=== PATIENT | female | born 1955 | race Caucasian/White ===

== ENCOUNTER 2018-07-18 05:38 | Emergency (ER) | payer MEDICARE, SELFPAY ==
[2018-07-18 05:39] VITALS: BP 148/128; PULSE 78; RESP 16; TEMP 36.8; O2SAT 98; BMI 25.3
--- NOTE | 2018-07-18 05:50 | CT_ITS ---
HISTORY: Left lower abdominal pain x today. Hx cervical cancer-surgery only, right salpingoophorectomy, appendectomy. EXAMINATION: CT Abdomen And Pelvis W/ Contrast TECHNIQUE: Helically acquired images were obtained of the abdomen and pelvis following IV contrast. A radiation dose optimization technique was used for this scan. IV Contrast dosage and agent: 100mL Isovue 370 Oral contrast: None. COMPARISON: None FINDINGS: Lower thorax: Clear. No pleural effusion or pericardial effusion. Food debris within the stomach. Normal liver, spleen, pancreas, gallbladder, and biliary system. Tiny accessory spleen bordering the lower pole of the spleen. Both kidneys are normal in position. Bilateral renal excretion of contrast without evidence of hydronephrosis, pyelonephritis, or suspicious renal lesion. Small parapelvic cyst at the upper pole of the left kidney. Adrenal glands are not enlarged. Abdominal aorta is normal in caliber. IVC is patent. No ascites or retroperitoneal lymph node enlargement. GI tract: Constipation pattern with large fecal residue. No obstruction. Previous appendectomy. No pericolonic inflammatory changes. Pelvis: Anteverted atrophic uterus. No free fluid or lymphadenopathy. Poor distention of the urinary bladder. Bones: S-shaped thoracolumbar scoliosis with lumbar convexity to left. Lumbar spine multilevel degenerative disc disease and spondylosis. No fracture or acute osseous abnormality. lMPRESSION: 1. Constipation pattern. No acute abdominal disease seen. 2. No lymphadenopathy or suspicious lesion. 3. Postsurgical and chronic changes, as above. Individualized dose optimization techniques were used for this CT. at 0735 Reported and signed by: Ramiro Mercado MD Electronically Signed: Ramiro Mercado, at 7:34 EDT Tel , Service support , CT/Abdomen/Pelvis W IV Cont ONLY
--- NOTE | 2018-07-18 05:52 | ED.VISSUMM ---
- ER Visit Summary Date of Service: 07/18/18 Chief Complaint: Left-sided abdominal pain History of Present Illness: The patient is a 63 F history of depression and anxiety. Prior ectopic and prior appendectomy. Patient states about 3 hours ago she started having sharp stabbing left-sided abdominal pain. Nothing particular makes the pain better or worse. Associated nausea no vomiting. Denies any dysuria. No stone history. No trauma. No dysuria. No prior history. She denies any fever, vomiting, constipation or diarrhea. Physical Examination: Older female no acute distress. Vital signs are stable and afebrile. She does not look septic or toxic. HEENT exam unremarkable. Neck nontender. Lungs clear to auscultation bilaterally. Heart regular rhythm no murmur. Abdomen is soft. Mildly tender left side of the abdomen. Normal bowel sounds. No peritoneal signs. No signs of obstruction, hernia or mass. Nondistended. Soft. No pulsatile mass. Patient moving all 4 extremities. Neurovascular intact. Back nontender. Neurologically she is awake and alert with no focal motor deficits. Test Results: CBC shows normal white count of 6 and hemoglobin of 12. BMP unremarkable with a gap of 6 and a creatinine of 1. Liver normal. Lipase was normal at 168. CT abdomen pelvis with IV contrast only awaiting the official radiology interpretation. Emergency Department Course and Treatment: 1 L normal saline. Morphine IV times 4 mg and Zofran IV. Patient is feeling much better after the pain medication. We are awaiting the formal CT read. Patient will be turned over to the morning incoming physician awaiting for the CAT scan results. If this is a left ureteral calculi she will be discharged home with [place] for pain. Urine strainer. Treatment Plan: [] Disposition: Discharge Impression: Acute left-sided abdominal pain This note was generated with [employer] dictation software. It may contain incorrect words, spelling, and punctuation that were not noted in review of the chart prior to signing ED Disposition - Plan for ED Patient: Disposition: Home or Assisted Living Instructions: ED Stone Renal W Colic Prescriptions: Hydrocodone/Acetaminophen [[place] 5-325 Tablet] 1 ea PO Q4H PRN PRN 3 Days #14 tab PRN Reason: Pain Referrals: Alfred Okeefe MD [Primary Care Provider] - 3-5 Days if not improving Additional Instructions: [place] for pain. Strain urine for possible passed kidney stone
--- NOTE | 2018-07-18 05:55 | ED.DCSUM_ITS ---
- ER Visit Summary Date of Service: 07/18/18 Chief Complaint: Left-sided abdominal pain History of Present Illness: The patient is a 63 F history of depression and anxiety. Prior ectopic and prior appendectomy. Patient states about 3 hours ago she started having sharp stabbing left-sided abdominal pain. Nothing particular makes the pain better or worse. Associated nausea no vomiting. Denies any dysuria. No stone history. No trauma. No dysuria. No prior history. She denies any fever, vomiting, constipation or diarrhea. Physical Examination: Older female no acute distress. Vital signs are stable and afebrile. She does not look septic or toxic. HEENT exam unremarkable. Neck nontender. Lungs clear to auscultation bilaterally. Heart regular rhythm no murmur. Abdomen is soft. Mildly tender left side of the abdomen. Normal bowel sounds. No peritoneal signs. No signs of obstruction, hernia or mass. Nondistended. Soft. No pulsatile mass. Patient moving all 4 extremities. Neurovascular intact. Back nontender. Neurologically she is awake and alert with no focal motor deficits. Test Results: CBC shows normal white count of 6 and hemoglobin of 12. BMP unremarkable with a gap of 6 and a creatinine of 1. Liver normal. Lipase was normal at 168. CT abdomen pelvis with IV contrast only awaiting the official radiology interpretation. Emergency Department Course and Treatment: 1 L normal saline. Morphine IV times 4 mg and Zofran IV. Patient is feeling much better after the pain medication. We are awaiting the formal CT read. Patient will be turned over to the morning incoming physician awaiting for the CAT scan results. If this is a left ureteral calculi she will be discharged home with [place] for pain. Urine strainer. Treatment Plan: [] Disposition: Discharge Impression: Acute left-sided abdominal pain This note was generated with [employer] dictation software. It may contain incorrect words, spelling, and punctuation that were not noted in review of the chart prior to signing ED Disposition - Plan for ED Patient: Disposition: Home or Assisted Living Instructions: ED Stone Renal W Colic Prescriptions: Hydrocodone/Acetaminophen [[place] 5-325 Tablet] 1 ea PO Q4H PRN PRN 3 Days #14 tab PRN Reason: Pain Referrals: Alfred Okeefe MD [Primary Care Provider] - 3-5 Days if not improving Additional Instructions: [place] for pain. Strain urine for possible passed kidney stone
[2018-07-18] MEDS: 0.9% Normal Saline 1,000 ML 1000 ML IV (05:57)
[2018-07-18 06:07] LABS: Bacteria 0 SEEN /hpf (None Seen); Mucous, Urine 0 SEEN /hpf (<or=2+)
[2018-07-18 06:10] LABS: Absolute Lymphocyte Count 2.79 X10^3/ul (0.83-4.51); Absolute Neutrophil Count 2.5 X10^3/uL (2.0-7.7); Basophil# 0.02 X10^3/uL; Basophil% 0.3 % (0-1); Eosinophil# 0.19 X10^3/uL; Eosinophils% 3.2 % (0-5); Hematocrit 38.7 % (37-47); Hemoglobin 12.6 g/dl (12.0-15.0); Lymphocyte # 2.79 X10^3/ul (4.0); Lymphocyte % 46.7 % (19-41); Mean Corp Hgb Conc 32.6 g/gl (32-36); Mean Corpuscular Hgb 28.8 pg (27.0-32.0); Mean Corpuscular Volume 88.6 fL (81-99); Mean Platelet Vol. 9.1 fl (6.2-12.0); Monocyte# 0.47 X10^3/uL; Monocyte% 7.9 % (0-10); Neutrophil # 2.49 X10^3/uL (2.7-7.7); Neutrophil % 41.7 % (47-70); Platelet Count 293 K/mm3 (150-450); RBC Distribution Width CV 14.5 % (11.6-14.6); RBC Distribution Width SD 47.2 fl (35.1-43.9); Red Blood Count 4.37 M/mm3 (4.2-5.4)
[2018-07-18 06:12] LABS: Color, Urine Yellow (Yellow); Glucose, Dipstick Normal (Normal); Ketone-Dipstick Negative (Negative); Leukocyte Esterase-Dipstick 25 /ul (Negative); Nitrite-Dipstick Negative (Negative); Occult Blood-Urine 10 /ul (Negative); Protein-Dipstick Negative (Negative); Specific Gravity, Urine 1.025 (1.002-1.030); Urine Bilirubin Dipstick Negative (Negative); Urine Clarity Clear (Clear); Urine Urobilinogen Normal (Normal)
[2018-07-18] MEDS: Morphine 4 MG/ML Syringe IV (06:13)
[2018-07-18] MEDS: Ondansetron 4 MG/2 ML Vial IV (06:13)
[2018-07-18 06:23] LABS: POSITIVE COUNT NO; POSITIVE DIFFERENTIAL NO; POSITIVE MORPHOLOGY NO
[2018-07-18 06:29] LABS: AST(SGOT) 16 U/L (15-37); Alanine Aminotransfer ALT/SGPT 22 U/L (13-56); Albumin, Serum 3.7 g/dL (3.2-5.0); Alkaline Phosphatase 55 U/L (45-117); Anion Gap 6 (5-15); BUN 24 mg/dL (7-18); BUN/Creat Ratio 22.6 RATIO (10-20); Bilirubin, Direct 0.06 mg/dL (0.00-0.30); Calcium,Total 8.6 mg/dL (8.5-10.1); Chloride 108 mmol/L (98-107); Creatinine, Serum 1.06 mg/dL (0.55-1.02); EST Glomerular Filtration Rate 56 mL/min (>60); Est Glom Filt Rate - Afr Amer 67 mL/min (>60); Estimated Creatinine Clearance 48.88 ml/min; Globulin 3.3 g/dL (2.2-4.2); Glucose 111 mg/dL (74-106); Lipase 168 U/L (73-393); Potassium 3.7 mmol/L (3.5-5.1); Sodium Level 139 mmol/L (136-145)
[2018-07-18 06:34] LABS: Red Blood Cells-Urine 0-5 SEEN /hpf (0-5); Squamous Epithelial Cells - UA 0-5 SEEN /hpf (5-10); White Blood Cells 0-5 SEEN /hpf (0-5)
--- NOTE | 2018-07-18 07:08 | ED.DEP ---
ED Disposition - Plan for ED Patient: Disposition: Home or Assisted Living Instructions: ED Stone Renal W Colic Prescriptions: Hydrocodone/Acetaminophen [[place] 5-325 Tablet] 1 ea PO Q4H PRN PRN 3 Days #14 tab PRN Reason: Pain Referrals: Alfred Okeefe MD [Primary Care Provider] - 3-5 Days if not improving Additional Instructions: [place] for pain. Strain urine for possible passed kidney stone
--- NOTE | 2018-07-18 07:12 | DCINST.ED_ITS ---
ED Disposition - Plan for ED Patient: Disposition: Home or Assisted Living Instructions: ED Stone Renal W Colic Prescriptions: Hydrocodone/Acetaminophen [[place] 5-325 Tablet] 1 ea PO Q4H PRN PRN 3 Days #14 tab PRN Reason: Pain Referrals: Alfred Okeefe MD [Primary Care Provider] - 3-5 Days if not improving Additional Instructions: [place] for pain. Strain urine for possible passed kidney stone
--- NOTE | 2018-07-18 08:00 | ED.DEP ---
ED Disposition - Plan for ED Patient: Disposition: Home or Assisted Living Instructions: ED Abdominal Pain Unkn Cause, ED Constipation Prescriptions: Hydrocodone/Acetaminophen [[place] 5-325 Tablet] 1 ea PO Q4H PRN PRN 3 Days #14 tab PRN Reason: Pain Referrals: Alfred Okeefe MD [Primary Care Provider] - 3-5 Days if not improving Additional Instructions: [place] for pain. Strain urine for possible passed kidney stone
--- NOTE | 2018-07-18 08:11 | ED.DEP ---
ED Disposition - Plan for ED Patient: Disposition: Home or Assisted Living Instructions: ED Abdominal Pain Unkn Cause, ED Constipation Prescriptions: Hydrocodone/Acetaminophen [[place] 5-325 Tablet] 1 ea PO Q4H PRN PRN 3 Days #14 tab PRN Reason: Pain Referrals: Alfred Okeefe MD [Primary Care Provider] - 3-5 Days if not improving
--- NOTE | 2018-07-18 08:19 | ED.RN ---
PT DID NOT RECEIVE [place] SCRIPT D/T HER HAVING CONSTIPATION, PER DR ARCHIBALD
[2018-07-18 08:20] VITALS: BP 110/68; PULSE 67; RESP 18; O2SAT 99
== END 2018-07-18 08:20 | disposition home or self-care (01) ==
PROVIDERS: Emergency Provider Emergency Medicine; Family Provider Family Medicine; PCP Family Medicine
DX: R10.9 Unspecified abdominal pain (principal); F32.9 Major depressive disorder, single episode, unspecified; F41.9 Anxiety disorder, unspecified; R11.0 Nausea; Z79.899 Other long term (current) drug therapy
CPT/HCPCS: 74177; 80048; 80076; 81001; 83690; 85025; 96361; 96374; 96375; 99285; J7030; Q9967; A4216; J2405

== ENCOUNTER 2020-12-17 11:54 | Emergency (ER) | payer MEDICARE, MEDICAID, SELFPAY ==
[2020-12-17 11:55] VITALS: BP 112/62; PULSE 87; RESP 20; TEMP 37.1; O2SAT 93; BMI 29.7
--- NOTE | 2020-12-17 13:12 | CT_ITS ---
EXAM: CT HEAD WITHOUT INTRAVENOUS CONTRAST CLINICAL INDICATION: Head injury. TECHNIQUE: Multiple axial images were obtained of the head without intravenous contrast. This CT exam was performed using one or more of the following dose reduction techniques: automated exposure control, adjustment of the mA and/or kV according to patient size, and/or use of iterative reconstruction technique. This report was created using [employer] report generation technology. COMPARISON: CT head without contrast 05/04/2017. FINDINGS: BRAIN AND EXTRA-AXIAL SPACES: Unremarkable. No intra- or extra-axial hemorrhage. No evidence of acute infarct. No intracranial mass or mass effect. There is preservation of the jackman/white matter interface. Posterior fossa structures are unremarkable. Ventricles are appropriate for age. No hydrocephalus. Basal cisterns are patent. BONES/JOINTS: Unremarkable. No discrete lytic or blastic abnormalities. SINUSES: Unremarkable as visualized. Clear. MASTOID AIR CELLS: Unremarkable. Clear. ORBITS: Visualized globes, extraocular muscles, optic nerves and retrobulbar fat appear unremarkable. CT/Brain/Head without Contrast IMPRESSION: Negative head/brain CT without intravenous contrast and without significant change when compared to 05/04/2017. Electronically Signed: Rich Hoffman MD at 14:38 EDT , Service support ,
[2020-12-17 14:00] VITALS: BP 94/60; PULSE 78; RESP 19; O2SAT 95
--- NOTE | 2020-12-17 15:02 | EX.ED.DYSGE1 ---
HPI History of Present Illness Chief Complaint: Fall Informant: patient Narrative Narrative: 65-year-old female presents with head injury. Patient states that she had a head injury several years ago and intermittently has ataxia resulting from it. She states that today she was off balance and falling striking her head on the TV stand. She is not sure if she lost consciousness but does not believe so. She states she tried to get up but could not she tried to crawl but could not and just felt very uncoordinated. She notes a hematoma to her occiput. She is not on any blood thinners. [facility] Medical History Anxiety Asthma COPD (chronic obstructive pulmonary disease) Depression GERD (gastroesophageal reflux disease) Schizophrenia Home Medications acetaminophen-codeine 1 tab PO Q4H PRN PRN 05/04/17 [History Last Taken Unknown] albuterol sulfate 2.5 mg INHALATION TID PRN PRN 05/04/17 [History Last Taken Unknown] albuterol sulfate [Proair Hfa (SP)Vent Pts] 2 puff INHALATION Q6H PRN PRN 05/04/17 [History Last Taken Unknown] amitriptyline 10 mg PO QHS 05/04/17 [History Last Taken Unknown] clonazepam [Klonopin] 2 mg PO QHS 05/04/17 [History Last Taken Unknown] fluoxetine 40 mg PO DAILY 05/04/17 [History Last Taken Unknown] lamotrigine [Lamictal] 200 mg PO BID 05/04/17 [History Last Taken Unknown] omeprazole 40 mg PO DAILY 05/04/17 [History Last Taken Unknown] topiramate 50 mg DAILY 05/04/17 [History Last Taken Unknown] diclofenac sodium 75 mg PO BIDCM 07/18/18 [History Last Taken Unknown] Allergy/AdvReac Type Severity Reaction Status Date / Time aspirin Allergy Nausea Verified 12/17/20 11:58 Surgical History History of appendectomy Social History (Updated 12/17/20 @ 15:[address] Heriberto España DO) Smoking Status: Current every day smoker tobacco type: e-cigarettes substance use type: does not use ROS ROS ED Constitutional Constitutional ED: Denies chills or weight loss Eyes Eyes: Denies change in vision or diplopia ENT ENT ED: Denies ear pain, rhinorrhea or sore throat Cardiovascular Cardiovascular: Denies chest pain, orthopnea, palpitations or racing heartbeat Respiratory/Chest Respiratory/Chest: Denies cough, dyspnea or orthopnea Gastrointestinal Gastrointestinal: Denies abdominal pain, diarrhea, nausea or vomiting Genitourinary Genitourinary ED: Denies dysuria, hematuria or urinary frequency Musculoskeletal Musculoskeletal: Denies arthralgias or myalgias Integumentary Denies abscess or rash Neurologic Neurologic: Reports headache(s) and other Details: Ataxia ; Denies weakness Psychiatric Psychiatric: Denies anxiety, depression, suicidal ideation or suicidal thoughts Endocrine Endocrinology: Denies polydipsia, polyphagia or polyuria Allergic/Immunologic Allergic/Immunologic ED: Denies mouth swelling, tongue swelling or urticaria EXAM Physical Exam Const Vital Signs: 12/17/20 11:55 12/17/20 12:01 12/17/20 14:00 Temperature 98.8 F Temperature Source Oral Pulse Rate 87 78 Respiratory Rate 20 H 19 H Respiratory Effort Normal Non-Labored Blood Pressure 112/62 94/60 Blood Pressure Mean 78 71 Pulse Ox 93 95 Oxygen Delivery Method Room Air Room Air Positive well nourished and well developed General Appearance ED: well developed HEENT Reports normocephalic, head/scalp atraumatic and moist mucous membranes HEENT Narrative: There is a less than 1 cm hematoma to the occiput of the scalp trauma Eyes PERRL and EOMs intact bilaterally Neck no lymphadenopathy, supple and no JVD Resp normal respiratory effort and clear to auscultation bilaterally Cardio regular rate, regular rhythm and no murmurs GI normal to inspection, nondistended, normoactive bowel sounds and non-tender Palpation: soft Back/Spine no CVA tenderness and normal ROM Extremity normal to inspection General Extremety ED: Negative for edema General Extremity: Negative for edema Neuro oriented x3, CN's II-XII intact bilaterally and no sensory deficits noted Neuro Narrative: Normal tbumbf-ar-kpyh cvwb-[id number]-[id number] test. Sensorium / Orientation: alert Motor Exam: strength 5/5 throughout Psych mental status grossly normal Mood & Affect: Negative for depressed or tearful Skin no rashes or lesions noted and no wounds MDM MDM MDM Narrative Medical decision making narrative: CT of the brain was negative. Patient most likely has a mild concussion. Would recommend follow-up with primary care in 1 week Radiography Diagnostic Testing: Radiology Impression Brain CT 12/17/20 13:12 IMPRESSION: Negative head/brain CT without intravenous contrast and without significant change when compared to 05/04/2017. Electronically Signed: Rich Hoffman MD at 14:38 EDT , Service support , Discharge Plan Triage Chief Complaint: Fall ED Provider: Heriberto España Dx/Rx/DC Orders Clinical Impression: Concussion Instructions: ED Concussion Prescriptions: No Action lamotrigine [Lamictal] 200 MG tablet 200 mg PO BID RF: 0 albuterol sulfate 2.5 MG/3 ML solution for nebulization 2.5 mg inhalation TID PRN PRN (Reason: Sob &/Or Wheezing) RF: 0 topiramate 25 MG tablet 50 mg DAILY RF: 0 acetaminophen-codeine 1 TABLET tablet 1 tab PO Q4H PRN PRN (Reason: Pain) RF: 0 omeprazole 40 MG capsule,delayed release(DR/EC) 40 mg PO DAILY RF: 0 amitriptyline 10 MG tablet 10 mg PO QHS RF: 0 clonazepam [Klonopin] 2 MG tablet 2 mg PO QHS RF: 0 albuterol sulfate [ProAir HFA] 1 PUFF inhaler 2 puff inhalation Q6H PRN PRN (Reason: Sob &/Or Wheezing) RF: 0 fluoxetine 20 MG capsule 40 mg PO DAILY RF: 0 diclofenac sodium 75 MG tablet 75 mg PO BIDCM RF: 0 Primary Care Provider: Alfred Okeefe Referrals: Alfred Okeefe MD [Primary Care Provider] - 1 Week Disposition Disposition: Home, Self Care
== END 2020-12-17 15:29 | disposition home or self-care (01) ==
PROVIDERS: Emergency Provider Emergency Medicine; PCP Family Medicine
DX: S06.0X0A Concussion without loss of consciousness, initial encounter (principal); S00.03XA Contusion of scalp, initial encounter; W01.190A Fall on same level from slipping, tripping and stumbling with subsequent striking against furniture, initial encounter; Y93.9 Activity, unspecified; Y92.9 Unspecified place or not applicable; R27.0 Ataxia, unspecified; F20.9 Schizophrenia, unspecified; F32.9 Major depressive disorder, single episode, unspecified; F41.9 Anxiety disorder, unspecified; J44.9 Chronic obstructive pulmonary disease, unspecified; K21.9 Gastro-esophageal reflux disease without esophagitis; Z79.899 Other long term (current) drug therapy
CPT/HCPCS: 70450; 99284

== ENCOUNTER 2021-04-22 16:18 | Emergency (ER) | payer MEDICARE, MEDICAID, SELFPAY ==
[2021-04-22 16:19] VITALS: BP 114/85; PULSE 92; RESP 18; TEMP 36.6; O2SAT 94; BMI 26.8
--- NOTE | 2021-04-22 16:34 | ED.VIS.FALL ---
HPI HPI - Fall History of Present Illness Chief Complaint: Fall Narrative Narrative: 65-year-old female past medical history of frequent falls presents with 2 weeks of chest pain after she had fallen. She states she has pain on her left lateral ribs. She states she has been falling quite frequently for the past few months. She called EMS today because she has not been taking any analgesics and felt that it was time to come in to see about her left-sided rib pain. It is worse with palpation and movement, and relieved by nothing. She denies any fevers or chills. No cough. No diaphoresis. She was nauseated and vomited once. She denies any blood in her emesis. [facility] Medical History Anxiety Asthma COPD (chronic obstructive pulmonary disease) Depression GERD (gastroesophageal reflux disease) Schizophrenia Home Medications acetaminophen-codeine 1 tab PO Q4H PRN PRN 05/04/17 [History Last Taken Unknown] albuterol sulfate 2.5 mg INHALATION TID PRN PRN 05/04/17 [History Last Taken Unknown] albuterol sulfate [Proair Hfa (SP)Vent Pts] 2 puff INHALATION Q6H PRN PRN 05/04/17 [History Last Taken Unknown] amitriptyline 10 mg PO QHS 05/04/17 [History Last Taken Unknown] clonazepam [Klonopin] 2 mg PO QHS 05/04/17 [History Last Taken Unknown] fluoxetine 40 mg PO DAILY 05/04/17 [History Last Taken Unknown] lamotrigine [Lamictal] 200 mg PO BID 05/04/17 [History Last Taken Unknown] omeprazole 40 mg PO DAILY 05/04/17 [History Last Taken Unknown] topiramate 50 mg DAILY 05/04/17 [History Last Taken Unknown] diclofenac sodium 75 mg PO BIDCM 07/18/18 [History Last Taken Unknown] tramadol [Ultram] 50 mg PO Q6H PRN #12 tab 04/22/21 [Rx Last Taken Unknown] Allergy/AdvReac Type Severity Reaction Status Date / Time aspirin Allergy Nausea Verified 12/17/20 11:58 Surgical History History of appendectomy Social History Smoking Status: Current every day smoker tobacco type: e-cigarettes substance use type: does not use ROS ROS ED ROS Narrative Constitutional: No fever, no chills. HEENT: No sore throat. No neck pain. No loss of vision. No rhinorrhea. Cardiovascular: Left rib/chest pain. No palpitations. No pedal edema. Respiratory: No cough, no shortness of breath. Abdominal: No abdominal pain. No nausea. No vomiting. Genitourinary: No dysuria. No hematuria. Musculoskeletal: No myalgias. No arthralgias. Neurologic: No headaches. No dizziness. No lightheadedness. Skin: No rash. No change in color. Psychiatric: No depression. No anxiety. EXAM Physical Exam Narrative Exam Narrative: Afebrile. Vital signs noted. HEENT: Normocephalic. Atraumatic. PERRL, EOMI. Neck soft and supple. No point tenderness or step off. Cardiovascular: Regular rate and rhythm. No murmurs, rubs, or gallops appreciated. Respiratory: No tachypnea. Lungs clear to auscultation bilaterally. Positive tenderness to palpation left chest wall and anterior to lateral ribs. No crepitance. Gastrointestinal: Abdomen soft, nontender, with normoactive bowel sounds. No rebound or guarding. Neurological: Awake. Alert. Nonfocal, nonlateralizing. Skin: No rash. Normal color. No pallor. Musculoskeletal: No pedal edema. Full range of motion extremities. Const Vital Signs: 04/22/21 16:19 04/22/21 17:33 04/22/21 19:01 Temperature 97.9 F Temperature Source Temporal Pulse Rate 92 Respiratory Rate 18 16 Respiratory Effort Normal Non-Labored Respiratory Depth Normal Respiratory Pattern Normal Blood Pressure 114/85 H Blood Pressure Mean 94 Pulse Ox 94 Oxygen Delivery Method Room Air Room Air Room Air MDM MDM MDM Narrative Medical decision making narrative: Patient was administered Tylenol which she has taken in the past. I will obtain x-rays of her left ribs. Her fall was very remote. Her x-ray does show acute minimally displaced left seventh rib fracture. No pneumothorax. She will be given a prescription for tramadol to take but advised to take her Tylenol if that has been controlling her pain for the last 2 weeks. She can take this for breakthrough pain. Additionally, she will apply ice to the affected area. She was given an incentive spirometer. She has a normal pulse ox currently. At this point in time, I feel she can be discharged safely home with follow-up to her primary care provider. It was explained to her that we do not wrap her chest or give her rib belt. Disposition is discharged home in stable condition. Radiography Diagnostic Testing: Clinical Impression(s) from Imaging Studies Ribs w/Chest X-Ray 04/22/21 17:20 IMPRESSION: RIBS: Acute minimally displaced left 7th rib fracture. CHEST: Normal x-ray examination of the chest. Electronically Signed: Sebastian Feliz MD at 18:35 EST , Service support , Discharge Plan Triage Chief Complaint: Fall ED Provider: Rich Hinton Dx/Rx/DC Orders Clinical Impression: Left rib fracture, Fall Instructions: ED Rib Fracture Prescriptions: New tramadol [Ultram] 50 mg tablet 50 mg PO Q6H PRN (Reason: pain) Qty: 12 RF: 0 No Action lamotrigine [Lamictal] 200 MG tablet 200 mg PO BID RF: 0 albuterol sulfate 2.5 MG/3 ML solution for nebulization 2.5 mg inhalation TID PRN PRN (Reason: Sob &/Or Wheezing) RF: 0 topiramate 25 MG tablet 50 mg DAILY RF: 0 acetaminophen-codeine 1 TABLET tablet 1 tab PO Q4H PRN PRN (Reason: Pain) RF: 0 omeprazole 40 MG capsule,delayed release(DR/EC) 40 mg PO DAILY RF: 0 amitriptyline 10 MG tablet 10 mg PO QHS RF: 0 clonazepam [Klonopin] 2 MG tablet 2 mg PO QHS RF: 0 albuterol sulfate [ProAir HFA] 1 PUFF inhaler 2 puff inhalation Q6H PRN PRN (Reason: Sob &/Or Wheezing) RF: 0 fluoxetine 20 MG capsule 40 mg PO DAILY RF: 0 diclofenac sodium 75 MG tablet 75 mg PO BIDCM RF: 0 Primary Care Provider: Alfred Okeefe Referrals: Alfred Okeefe MD [Primary Care Provider] - 04/29/21 Disposition Disposition: Home, Self Care
--- NOTE | 2021-04-22 17:20 | RAD_ITS ---
STUDY: X-RAY - UNILATERAL RIBS ( LEFT ) WITH CHEST REASON FOR EXAM: Female, 65 years old. pain TECHNIQUE - RIBS: 4 view(s) of the ribs. TECHNIQUE - CHEST: Single PA view of the chest. COMPARISON: None. FINDINGS - RIBS: An acute minimally displaced oblique fractures present at the lateral aspect of the left seventh rib. Normal remaining visualized ribs without a demonstrated fracture. FINDINGS - CHEST: The lungs are clear and expanded. There is no demonstrated pleural abnormality. Normal size heart. Normal mediastinum and devorah. Normal visualized pulmonary arteries. Normal visualized aortic arch and descending thoracic aorta. Normal visualized thoracic spine. There is degenerative osteoarthritis of the bilateral shoulders. An acute minimally displaced oblique fractures present at the lateral aspect of the left seventh rib. There is no demonstrated abnormality of the visualized soft tissue structures of the upper abdomen. RAD/Ribs Uni Min 3V w/PA Chest IMPRESSION: RIBS: Acute minimally displaced left 7th rib fracture. CHEST: Normal x-ray examination of the chest. Electronically Signed: Sebastian Feliz MD at 18:35 EST , Service support ,
[2021-04-22] MEDS: Acetaminophen 325 MG Tablet 650 MG PO (17:29)
[2021-04-22 19:01] VITALS: RESP 16
--- NOTE | 2021-04-22 19:33 | ED.RN ---
Patient discharged and given a change of underwear with pad. We do not have any of her things but lady called and they left it on her couch, at home. She states she cannot call anyone to get her and does not have the ability to pay for cab. Told her I will call her emergency contact but she does not have her number to call her.
== END 2021-04-22 19:27 | disposition home or self-care (01) ==
PROVIDERS: Emergency Provider Emergency Medicine; PCP Family Medicine; Visit Provider Emergency Medicine
DX: S22.32XA Fracture of one rib, left side, initial encounter for closed fracture (principal); F20.9 Schizophrenia, unspecified; J44.9 Chronic obstructive pulmonary disease, unspecified; R11.2 Nausea with vomiting, unspecified; W19.XXXA Unspecified fall, initial encounter; F17.290 Nicotine dependence, other tobacco product, uncomplicated; K21.9 Gastro-esophageal reflux disease without esophagitis; F41.9 Anxiety disorder, unspecified; F32.A Depression, unspecified; Z79.899 Other long term (current) drug therapy
CPT/HCPCS: 71101

== ENCOUNTER 2021-04-22 20:46 | Observation (INO) | payer MEDICARE, MEDICAID, SELFPAY ==
[2021-04-22 20:47] VITALS: BP 129/73; PULSE 96; RESP 16; TEMP 36.6; O2SAT 97; BMI 28.7
[2021-04-22 20:51] VITALS: O2SAT 97
--- NOTE | 2021-04-22 20:55 | ED.RN ---
Patient given call light and told to not get up on her own and to use the button. Door open with patient near nurse station. Patient agreeable and confirmed knowledge of the location of her button on the side rail.
[2021-04-22 21:38] VITALS: BP 110/75
--- NOTE | 2021-04-22 21:38 | EKG12_ITS ---
Test Reason : FALL Blood Pressure : / mmHG Vent. Rate : 086 BPM Atrial Rate : 086 BPM P-R Int : 152 ms QRS Dur : 082 ms QT Int : 382 ms P-R-T Axes : 072 063 064 degrees QTc Int : 457 ms Normal sinus rhythm Somatic/Motion artifact Nonspecific T wave abnormality Confirmed by BITA DAI, FRANSISCA ([id number]), slot editor ROBERTO HARRIS ([id number]) on 04/23/2021 2:18:11 PM Referred By: MARLYN Confirmed By:FRANSISCA SUNSHINE MD
--- NOTE | 2021-04-22 21:38 | CT_ITS ---
STUDY: CT BRAIN WITHOUT CONTRAST REASON FOR EXAM: Female, 65 years old. FELL AND HIT HEAD,HAS ABRASIONS TO NOSE AND FOREHEAD RADIATION DOSAGE (If Supplied By Facility): CTDIvol = ( 44.99 ) mGy, DLP = ( 779.24 ) mGycm TECHNIQUE: Transaxial CT imaging of the brain was performed without administration of intravenous contrast material. Individualized dose optimization techniques were used for this CT. COMPARISON: Head CT dated December 17, 2020 FINDINGS: Mild soft tissue swelling is present over the right and anterior side of the frontal bone. No visualized skull fractures. Normal calvarium. There is mild cerebral atrophy with widening of the extra-axial spaces and ventricular dilatation. Normal white matter tracts of the cerebral hemispheres. Normal basal ganglia and thalami. Normal brainstem. Normal cerebellum. There is no intracranial hemorrhage. There are no findings of an acute ischemic infarction. Normal visualized paranasal sinuses. CT/Brain/Head without Contrast IMPRESSION: 1. Mild soft tissue swelling is present over the right and anterior side of the frontal bone. No visualized skull fractures. 2. Chronic involutional changes of the brain. Electronically Signed: Sebastian Feliz MD at 22:57 EST , Service support ,
[2021-04-22 22:29] VITALS: BP 115/75; BP 116/77; BP 123/75; PULSE 89; PULSE 91; PULSE 94
[2021-04-22 22:34] LABS: Absolute Lymphocyte Count 0.62 X10^3/uL (0.83-4.51); Absolute Neutrophil Count 9.7 X10^3/uL (2.0-7.7); Basophil# 0.04 X10^3/uL; Basophil% 0.4 % (0-1); Eosinophil# 0.09 X10^3/uL; Eosinophils% 0.8 % (0-5); Hematocrit 32.9 % (37-47); Hemoglobin 10.4 g/dL (12.0-15.0); Lymphocyte # 0.62 X10^3/ul (0.83-4.51); Lymphocyte % 5.5 % (19-41); Mean Corp Hgb Conc 31.6 g/dL (32-36); Mean Corpuscular Hgb 29.2 pg (27.0-32.0); Mean Corpuscular Volume 92.4 fL (81-99); Mean Platelet Vol. 8.9 fl (6.2-12.0); Monocyte# 0.66 X10^3/uL; Monocyte% 5.9 % (0-10); NRBC Flagged by Analyzer 0 % (0-5); Neutrophil # 9.74 X10^3/uL (2.7-7.7); Neutrophil % 86.3 % (47-70); Platelet Count 266 K/mm3 (150-450); RBC Distribution Width CV 14.2 % (11.6-14.6); RBC Distribution Width SD 48.8 fl (35.1-43.9); Red Blood Count 3.56 M/mm3 (4.2-5.4); White Blood Count 11.3 K/mm3 (4.4-11.0)
[2021-04-22 22:51] LABS: ALB/GLOB Ratio 0.9 RATIO (0.9-2.4); AST(SGOT) 28 U/L (15-37); Alanine Aminotransfer ALT/SGPT 27 U/L (13-56); Alkaline Phosphatase 81 U/L (45-117); Anion Gap 10 (5-15); BUN 20 mg/dL (7-18); BUN/Creat Ratio 23.8 RATIO (10-20); Calcium,Total 8.9 mg/dL (8.5-10.1); Chloride 105 mmol/L (98-107); Creatinine, Serum 0.84 mg/dL (0.55-1.02); EST Glomerular Filtration Rate 72 mL/min (>60); Est Glom Filt Rate - Afr Amer 87 mL/min (>60); Estimated Creatinine Clearance 50.38 ml/min; Globulin 3.3 g/dL (2.2-4.2); Glucose 106 mg/dL (74-106); Potassium 4.4 mmol/L (3.5-5.1); Protein, Total 6.3 g/dL (6.4-8.2); Sodium Level 138 mmol/L (136-145)
--- NOTE | 2021-04-22 23:00 | EDS_ITS ---
HPI HPI - Fall History of Present Illness Chief Complaint: Fall Narrative Narrative: Patient re-presents to the emergency department after being seen by myself and diagnosed with a left seventh rib fracture from a fall 2 weeks ago. It was reported that the patient was trying to get into the taxi and fell 3 times. There was no loss of consciousness but she sustained abrasions to her face. Patient did relay history given that she has been falling frequently over the last few months. She denies any fever or chills, no other symptoms. She denies any new injury. PFSH PFS Medical History Anxiety Asthma COPD (chronic obstructive pulmonary disease) Depression GERD (gastroesophageal reflux disease) Schizophrenia Home Medications acetaminophen-codeine 1 tab PO Q4H PRN PRN 05/04/17 [History Last Taken Unknown] albuterol sulfate 2.5 mg INHALATION TID PRN PRN 05/04/17 [History Last Taken Unknown] albuterol sulfate [Proair Hfa (SP)Vent Pts] 2 puff INHALATION Q6H PRN PRN 05/04/17 [History Last Taken Unknown] amitriptyline 10 mg PO QHS 05/04/17 [History Last Taken Unknown] clonazepam [Klonopin] 2 mg PO QHS 05/04/17 [History Last Taken Unknown] fluoxetine 40 mg PO DAILY 05/04/17 [History Last Taken Unknown] lamotrigine [Lamictal] 200 mg PO BID 05/04/17 [History Last Taken Unknown] omeprazole 40 mg PO DAILY 05/04/17 [History Last Taken Unknown] topiramate 50 mg DAILY 05/04/17 [History Last Taken Unknown] diclofenac sodium 75 mg PO BIDCM 07/18/18 [History Last Taken Unknown] tramadol [Ultram] 50 mg PO Q6H PRN #12 tab 04/22/21 [Rx Last Taken Unknown] Allergy/AdvReac Type Severity Reaction Status Date / Time aspirin Allergy Nausea Verified 12/17/20 11:58 Surgical History History of appendectomy Social History Smoking Status: Current every day smoker tobacco type: e-cigarettes substance use type: does not use ROS ROS ED ROS Narrative Constitutional: No fever, no chills. HEENT: No sore throat. No neck pain. No loss of vision. No rhinorrhea. Cardiovascular: Left sided chest pain from broken rib diagnosed earlier today. No palpitations. No pedal edema. Respiratory: No cough, no shortness of breath. Abdominal: No abdominal pain. No nausea. No vomiting. Genitourinary: No dysuria. No hematuria. Musculoskeletal: No myalgias. No arthralgias. Neurologic: No headaches. No dizziness. No lightheadedness. Frequent falls. Skin: No rash. No change in color. Psychiatric: No depression. No anxiety. EXAM Physical Exam Narrative Exam Narrative: Afebrile. Vital signs noted. HEENT: Normocephalic. Small linear abrasions in between eyebrows and on forehead, no active bleeding. PERRL, EOMI. Neck soft and supple. No point tenderness or step off. Cardiovascular: Regular rate and rhythm. No murmurs, rubs, or gallops appreciated. Mild tenderness to palpation left rib cage. Respiratory: No tachypnea. Lungs clear to auscultation bilaterally. Gastrointestinal: Abdomen soft, nontender, with normoactive bowel sounds. No rebound or guarding. Neurological: Awake. Alert. Nonfocal, nonlateralizing. Skin: No rash. Normal color. No pallor. Musculoskeletal: No pedal edema. Full range of motion extremities. Const Vital Signs: 04/22/21 20:47 04/22/21 20:51 04/22/21 21:38 Temperature 97.8 F Temperature Source Temporal Pulse Rate 96 Pulse Rate [Lying] Pulse Rate [Sitting] Pulse Rate [Standing] Respiratory Rate 16 Respiratory Effort Normal Respiratory Depth Normal Respiratory Pattern Normal Blood Pressure 129/73 H 110/75 Blood Pressure [Lying] Blood Pressure [Sitting] Blood Pressure [Standing] Blood Pressure Mean 91 86 Blood Pressure Mean [Lying] Blood Pressure Mean [Sitting] Blood Pressure Mean [Standing] Pulse Ox 97 97 Oxygen Delivery Method Room Air Room Air 04/22/21 22:29 04/22/21 23:22 Temperature Temperature Source Pulse Rate 17 L Pulse Rate [Lying] 94 Pulse Rate [Sitting] 89 Pulse Rate [Standing] 91 Respiratory Rate Respiratory Effort Respiratory Depth Respiratory Pattern Blood Pressure Blood Pressure [Lying] 116/77 Blood Pressure [Sitting] 123/75 H Blood Pressure [Standing] 115/75 Blood Pressure Mean Blood Pressure Mean [Lying] 90 Blood Pressure Mean [Sitting] 91 Blood Pressure Mean [Standing] 88 Pulse Ox Oxygen Delivery Method MDM MDM MDM Narrative Medical decision making narrative: As the patient fell frequently outside, she states she lives alone, I am concerned about her falling and injuring herself more. I obtained an EKG which demonstrates normal sinus rhythm at 86 bpm without ectopy or acute ST changes. There is baseline artifact in leads V4 and V5. CBC shows slightly elevated white count of 11.3, hemoglobin 10.4. Normal platelet count of 266. Electrolyte panel is grossly unremarkable except for BUN of 20 with a normal creatinine of 0.8. LFTs are grossly unremarkable. CT of the brain shows mild soft tissue swelling over the right and anterior side of the frontal bone, no visualized skull fracture. There is chronic involutional changes of the brain. I will discuss the patient with the hospitalist, Dr. Peace for observation and PT OT evaluation regarding her inability to ambulate and frequent falls. Disposition is assigned to observation. Urinalysis currently pending. Lab Data Labs: Laboratory Results - last 24 hr 04/22/21 04/22/21 22:20 22:20 WBC 11.3 H RBC 3.56 L Hgb 10.4 L Hct 32.9 L MCV 92.4 MCH 29.2 MCHC 31.6 L RDW Std Deviation 48.8 H RDW Coeff of Portillo 14.2 Plt Count 266 MPV 8.9 Immature Gran % (Auto) 1.100 H Neut % (Auto) 86.3 H Lymph % (Auto) 5.5 L [place] % (Auto) 5.9 Eos % (Auto) 0.8 Baso % (Auto) 0.4 Absolute Neuts (auto) 9.7 H Absolute Lymphs (auto) 0.62 L Nucleated RBC % 0 Sodium 138 Potassium 4.4 Chloride 105 Carbon Dioxide 23.0 Anion Gap 10 BUN 20 H Creatinine 0.84 Estim Creat Clear Calc 50.38 Est GFR (MDRD) Af Amer 87 Est GFR (MDRD) Non-Af 72 BUN/Creatinine Ratio 23.8 H Glucose 106 Calcium 8.9 Total Bilirubin 0.40 AST 28 ALT 27 Alkaline Phosphatase 81 Total Protein 6.3 L Albumin 3.0 L Globulin 3.3 Albumin/Globulin Ratio 0.9 Radiography Diagnostic Testing: Clinical Impression(s) from Imaging Studies Brain CT 04/22/21 21:38 IMPRESSION: 1. Mild soft tissue swelling is present over the right and anterior side of the frontal bone. No visualized skull fractures. 2. Chronic involutional changes of the brain. Electronically Signed: Sebastian Feliz MD at 22:57 EST , Service support , Discharge Plan Dx/Rx/DC Orders Clinical Impression: Frequent falls, Closed head injury, Facial abrasion, Unsteady gait Disposition Disposition: Acute Care Hospital [facility]
[2021-04-22 23:22] VITALS: PULSE 17
[2021-04-22 23:32] LABS: Bacteria 0 SEEN /hpf (None Seen); Mucous, Urine 0 SEEN /hpf (<or=2+); Squamous Epithelial Cells - UA 0 SEEN /hpf (5-10)
--- NOTE | 2021-04-22 23:33 | HP.PCM_ITS ---
HPI - General HPI Narrative SANDRA LEHMAN, is a 65 F who presents to the emergency room with chief complaint of fall hitting her head. Patient has a significant past medical history of fall with left rib fracture approximately 2 weeks ago and has had subsequent falls at home for unknown reason. The patient has had a work-up in the ER in cluding unremarkable blood chemistry and CT scan of brain which shows soft tissue injury but no skull fracture, left rib fracture already known which is minimally displaced. The patient was set to be discharged home but fell 3 times on the ground causing an abrasion on her face while trying to get into the taxi outside. She was brought back into the emergency room and subsequently admitted for observation and physical therapy to assess for balance. [facility] Medical History (Updated 04/22/21 @ 23:[address] Aurelio Peace MD) Anxiety Asthma COPD (chronic obstructive pulmonary disease) Depression GERD (gastroesophageal reflux disease) Schizophrenia Home Medications acetaminophen-codeine 1 tab PO Q4H PRN PRN 05/04/17 [History Last Taken Unknown] albuterol sulfate 2.5 mg INHALATION TID PRN PRN 05/04/17 [History Last Taken Unknown] albuterol sulfate [Proair Hfa (SP)Vent Pts] 2 puff INHALATION Q6H PRN PRN 05/04/17 [History Last Taken Unknown] amitriptyline 10 mg PO QHS 05/04/17 [History Last Taken Unknown] clonazepam [Klonopin] 2 mg PO QHS 05/04/17 [History Last Taken Unknown] fluoxetine 40 mg PO DAILY 05/04/17 [History Last Taken Unknown] lamotrigine [Lamictal] 200 mg PO BID 05/04/17 [History Last Taken Unknown] omeprazole 40 mg PO DAILY 05/04/17 [History Last Taken Unknown] topiramate 50 mg DAILY 05/04/17 [History Last Taken Unknown] diclofenac sodium 75 mg PO BIDCM 07/18/18 [History Last Taken Unknown] tramadol [Ultram] 50 mg PO Q6H PRN #12 tab 04/22/21 [Rx Last Taken Unknown] Allergy/AdvReac Type Severity Reaction Status Date / Time aspirin Allergy Nausea Verified 12/17/20 11:58 Surgical History History of appendectomy Social History Smoking Status: Current every day smoker tobacco type: e-cigarettes substance use type: does not use ROS Constitutional Constitutional: Denies chills or fever(s) Eyes Eyes: Denies change in vision ENT HEENT: Denies abnormal hearing Cardiovascular Cardiovascular: Reports chest pain Respiratory/Chest Respiratory/Chest: Denies cough Gastrointestinal Gastrointestinal: Denies abdominal pain Genitourinary Genitourinary: Denies dysuria Musculoskeletal Musculoskeletal: Denies back pain Neurologic Neurologic: Reports lack of coordination Psychiatric Psychiatric: Reports anxiety Vital Signs Vital Signs Vital Signs: 04/22/21 20:47 04/22/21 20:51 04/22/21 21:38 Temperature 97.8 F Temperature Source Temporal Pulse Rate 96 Pulse Rate [Lying] Pulse Rate [Sitting] Pulse Rate [Standing] Respiratory Rate 16 Respiratory Effort Normal Respiratory Depth Normal Respiratory Pattern Normal Blood Pressure 129/73 H 110/75 Blood Pressure [Lying] Blood Pressure [Sitting] Blood Pressure [Standing] Blood Pressure Mean 91 86 Blood Pressure Mean [Lying] Blood Pressure Mean [Sitting] Blood Pressure Mean [Standing] Pulse Ox 97 97 Oxygen Delivery Method Room Air Room Air 04/22/21 22:29 04/22/21 23:22 Temperature Temperature Source Pulse Rate 17 L Pulse Rate [Lying] 94 Pulse Rate [Sitting] 89 Pulse Rate [Standing] 91 Respiratory Rate Respiratory Effort Respiratory Depth Respiratory Pattern Blood Pressure Blood Pressure [Lying] 116/77 Blood Pressure [Sitting] 123/75 H Blood Pressure [Standing] 115/75 Blood Pressure Mean Blood Pressure Mean [Lying] 90 Blood Pressure Mean [Sitting] 91 Blood Pressure Mean [Standing] 88 Pulse Ox Oxygen Delivery Method Weight Weight: 152 lb 1.903 oz Body Mass Index (BMI) 28.7 Physical Exam Const alert General Appearance: cooperative HEENT normocephalic HEENT Narrative: facial abrasion /contusion Eyes PERRL Neck supple Resp normal respiratory effort, normal air movement and clear to auscultation bilaterally Cardio regular rate, regular rhythm, S1 normal heart sound and S2 normal heart sound GI normal to inspection, nondistended, normoactive bowel sounds Extremity no clubbing, cyanosis or edema Skin General Skin Exam: turgor normal Neuro CN's II-XII intact bilaterally Psych affect normal Results Lab / Micro Data Result Diagrams: 04/22/21 22:20 04/22/21 22:20 Labs: Laboratory Results - last 24 hr 04/22/21 22:20: WBC 11.3 H, RBC 3.56 L, Hgb 10.4 L, Hct 32.9 L, MCV 92.4, MCH 29.2, MCHC 31.6 L, RDW Std Deviation 48.8 H, RDW Coeff of Portillo 14.2, Plt Count 266, MPV 8.9, Immature Gran % (Auto) 1.100 H, Neut % (Auto) 86.3 H, Lymph % (Auto) 5.5 L, [place] % (Auto) 5.9, Eos % (Auto) 0.8, Baso % (Auto) 0.4, Absolute Neuts (auto) 9.7 H, Absolute Lymphs (auto) 0.62 L, Nucleated RBC % 0 04/22/21 22:20: Sodium 138, Potassium 4.4, Chloride 105, Carbon Dioxide 23.0, Anion Gap 10, BUN 20 H, Creatinine 0.84, Estim Creat Clear Calc 50.38, Est GFR (MDRD) Af Amer 87, Est GFR (MDRD) Non-Af 72, BUN/Creatinine Ratio 23.8 H, Glucose 106, Calcium 8.9, Total Bilirubin 0.40, AST 28, ALT 27, Alkaline Phosphatase 81, Total Protein 6.3 L, Albumin 3.0 L, Globulin 3.3, Albumin/Globulin Ratio 0.[address] 04/22/21 21:38 IMPRESSION: 1. Mild soft tissue swelling is present over the right and anterior side of the frontal bone. No visualized skull fractures. 2. Chronic involutional changes of the brain. Electronically Signed: Sebastian Feliz MD at 22:57 EST , Service support , Assessment & Plan Assessment/Plan (1) Left rib fracture: (2) Frequent falls: (3) Closed head injury: (4) Facial abrasion: (5) Unsteady gait: (6) Generalized anxiety disorder: (7) COPD (chronic obstructive pulmonary disease): (8) Depression: (9) Schizophrenia: PLAN: 1. Frequent falls?cause of which is unknown at this time. We will have physical therapy evaluate and treat for activities of daily living tomorrow. Consult machine adjuster leader case trim for discharge planning. Urinalysis is pending 2. Closed head injury?negative for skull fracture on CT scan patient is alert and oriented we will continue to monitor for any mental status changes 3. COPD?continue home medications 4. Schizophrenia/depression?continue home medications 5. Left rib fracture?stable we will add pain medication as needed staying with NSAIDs for now 6. DVT prophylaxis?SCDs
[2021-04-22 23:37] LABS: Color, Urine Yellow (Yellow); Glucose, Dipstick Normal (Normal); Ketone-Dipstick 5 mg/dl (Negative); Leukocyte Esterase-Dipstick 25 /ul (Negative); Nitrite-Dipstick Negative (Negative); Occult Blood-Urine Negative /ul (Negative); Protein-Dipstick Negative (Negative); Specific Gravity, Urine 1.015 (1.002-1.030); Urine Bilirubin Dipstick Negative (Negative); Urine Clarity Clear (Clear); Urine Urobilinogen Normal (Normal)
[2021-04-22 23:53] VITALS: BP 114/70; PULSE 78; RESP 15; TEMP 36.4; O2SAT 97
[2021-04-22 23:54] LABS: Red Blood Cells-Urine 0-5 SEEN /hpf (0-5); White Blood Cells 0-5 SEEN /hpf (0-5)
[2021-04-22 23:55] LABS: Amorphous Sediment 1+
[2021-04-23 00:46] VITALS: BMI 28.4
[2021-04-23 01:12] VITALS: BP 117/73; PULSE 87; RESP 18; TEMP 36.9; O2SAT 95
--- NOTE | 2021-04-23 03:11 | PCS.PANDOC ---
PANDEMIC DOCUMENTATION INITIATED: Date: 04/23/2021 Time: 0000
[2021-04-23 08:13] VITALS: BP 142/72; PULSE 88; RESP 16; TEMP 36.8; O2SAT 96
[2021-04-23] MEDS: Diclofenac 75 MG Tablet PO ×2 (08:24→16:50)
--- NOTE | 2021-04-23 09:47 | CASEMGMT ---
AYO ESTEVES Assessment: Face to Face with pt for initial transition planning/care coordination assessment. AYO ESTEVES introduced self and role at [facility], pt voices understanding and consents to assessment. Pt is A/O x4 and answers all questions appropriately at this time. Pt sitting up in bed in no distress. Care providers, pharmacy, and demographics verified/updated. Admitting Dx: frequent falls PCP:[facility] Specialists: Pt denies having any specialists but states she does go to the counseling center. She does not know who she sees there. She states she does not have a caser shoe parts there as she doesn't qualify for it. Preferred Pharmacy: [facility] Insurance: [facility], [facility] Prescription Benefit: yes LW/HPOA: Pt denies having a LW/DPOA and denies need for info regarding AD. She states it is on her list of things to do. LNOK: Pt does not have any contacts. She states she does not communicate with her family. She does have a neighbor but she does not want this person listed until she speaks with him/her. Living Arrangements: Pt lives alone in a ground level apt with no steps to enter. Pt reports she was I in ADL's prior to her fall that fractured her rib. Pt states she doesn't know why she is falling. She states some days she is fine and other days she loses her balance. Transportation: Pt drives self and denies concerns with transportation. DME/HHC/SNF: Pt has a cane and medic alert in her home. She states she has not had HHC but has an aide that comes weekly on Fridays for 4 hours through her insurance. She does not know who her caser shoe parts is through her insurance. Pt denies SNF stays. Pt states she feels she may need some s/t therapy at a rehab facility to build her strength and improve her balance. Notified SW. Pt states no further concerns/needs. CM to follow. Advised pt to ask CM if any further question/concerns/needs arise, voices understanding. Pt Goal: s/t rehab at SNF Plan: s/t rehab at SNF
[2021-04-23] MEDS: Pantoprazole Sodium 40 MG Tablet PO (10:09)
[2021-04-23] MEDS: FLUoxetine 20 MG Capsule 40 MG PO (10:09)
[2021-04-23] MEDS: lamoTRIgine 100 MG Tablet 200 MG PO ×2 (10:10→21:30)
[2021-04-23] MEDS: Topiramate 50 MG Tablet PO (10:10)
--- NOTE | 2021-04-23 13:30 | CASEMGMT ---
Social Work SW met w/pt in room in regard to discharge plan. Initially pt told SW she wanted to go home as she needs to pay bills. Pt was tearful, talked about not having anyone to help her with anything. SW offered support. We talked through the options at discharge. Pt then states she knows she probably needs to go somewhere for rehab. SW provided to pt a list of detention facilities in pt's insurance network, preferred geographic area, complete with quality and resource use data. Pt would prefer [facility] if she needs SNF. SW explained will come see her again after she has PT/OT, and then see if SNF is needed or if she can go home. Pt states understanding. SW will follow up later this afternoon. OPHELIA Soria
[2021-04-23 14:01] VITALS: O2SAT 96
[2021-04-23 14:14] VITALS: BP 144/73; PULSE 93; RESP 16; TEMP 36.8; O2SAT 94
--- NOTE | 2021-04-23 15:09 | CASEMGMT ---
AYO CM in to discuss FLEMING form with patient. RN CM explained FLEMING form, patient voiced understanding. Pt signed form and filed in chart. Pt provided with a copy of signed FLEMING form. Patient had no further questions or concerns at this time.
--- NOTE | 2021-04-23 15:23 | CASEMGMT ---
Social Work Pt had PT/OT, it does seem pt would benefit from SNF placement. SW spoke w/pt, she is agreeable to SW sending a referral to [facility]. SW attempted to get clarification from pt on why she has services at home, if it's related to her mental illness--as this information is needed to complete the PAS/RR. Pt explained she got help in the home from a previous job. She is not able to really explain the reason she is getting help at home. In regard to ADL's, pt states her aide helps her with laundry, chores and is present when she showers, but pt showers herself. Pt does prepare her own food, states can drive but needs to get a car. SW asked pt to sign a release so SW can contact her counselor at [facility] for some clarification. She signed the release. SW called [facility], message left for Dr. Engle, her counselor. SW also called pt's [facility] case advocate, Isabela Mccauley, message left for her as well to call this SW. Once RAULITO is able to get some additional feedback, will complete the PAS/RR. OPHELIA Soria
--- NOTE | 2021-04-23 16:10 | CASEMGMT ---
Social Work Referral sent to [facility]. SW will follow up. OPHELIA Soria
--- NOTE | 2021-04-23 19:29 | PCM.PN.HOSP ---
Subjective Subjective Patient was seen and examined today, she had a series of falls at her residence, was seen in the emergency room and diagnosed with left rib fractures, she was released to go home but then had a fall when trying to get into a taxi and was brought back to the ER and subsequently placed in the hospital for observation for PT eval. Patient has a history of schizophrenia, she does not remember the events that led to her being placed into the hospital, she states that her neighbor called the police on her and she also talks about a peeping Dwain around her apartment complex Objective Data Objective Data Vital Signs: Vital Signs Temp Pulse Resp BP Pulse Ox 98.3 F 93 16 144/73 H 94 04/23/21 14:14 04/23/21 14:14 04/23/21 14:14 04/23/21 14:14 04/23/21 14:14 Oxygen Delivery Method Room Air Weight: 68.3 kg Body Mass Index (BMI) 28.4 Intake & Output: Intake and Output for Last 24 Hours 04/21/21 04/22/21 04/23/21 23:59 23:59 23:59 Output Total 150 / 150 Balance -150 / -150 Lab / Micro Data Result Diagrams: 04/22/21 22:20 04/22/21 22:20 Labs: Laboratory Results - last 24 hr 04/22/21 22:20: WBC 11.3 H, RBC 3.56 L, Hgb 10.4 L, Hct 32.9 L, MCV 92.4, MCH 29.2, MCHC 31.6 L, RDW Std Deviation 48.8 H, RDW Coeff of Portillo 14.2, Plt Count 266, MPV 8.9, Immature Gran % (Auto) 1.100 H, Neut % (Auto) 86.3 H, Lymph % (Auto) 5.5 L, [place] % (Auto) 5.9, Eos % (Auto) 0.8, Baso % (Auto) 0.4, Absolute Neuts (auto) 9.7 H, Absolute Lymphs (auto) 0.62 L, Nucleated RBC % 0 04/22/21 22:20: Sodium 138, Potassium 4.4, Chloride 105, Carbon Dioxide 23.0, Anion Gap 10, BUN 20 H, Creatinine 0.84, Estim Creat Clear Calc 50.38, Est GFR (MDRD) Af Amer 87, Est GFR (MDRD) Non-Af 72, BUN/Creatinine Ratio 23.8 H, Glucose 106, Calcium 8.9, Total Bilirubin 0.40, AST 28, ALT 27, Alkaline Phosphatase 81, Total Protein 6.3 L, Albumin 3.0 L, Globulin 3.3, Albumin/Globulin Ratio 0.9 04/22/21 23:23: Urine Color Yellow, Urine Clarity Clear, Urine pH 8.0, Ur Specific [place] 1.015, Urine Protein Negative, Urine Glucose (UA) Normal, Urine Ketones 5 H, Urine Occult Blood Negative, Urine Nitrite Negative, Urine Bilirubin Negative, Urine Urobilinogen Normal, Ur Leukocyte Esterase 25 H, Urine RBC 0-5 SEEN, Urine WBC 0-5 SEEN, Ur Squamous Epith Cells 0 SEEN, Amorphous Sediment 1+, Urine Bacteria 0 SEEN, Urine Mucus 0 SEEN Micro: Microbiology 04/22/21 23:24 Nasal Secretion SARS-CoV-2 Antigen (Rapid) - Final Radiography Diagnostic Testing: Radiology Impression Brain CT 04/22/21 21:38 IMPRESSION: 1. Mild soft tissue swelling is present over the right and anterior side of the frontal bone. No visualized skull fractures. 2. Chronic involutional changes of the brain. Electronically Signed: Sebastian Feliz MD at 22:57 EST , Service support , Physical Exam Const alert and no apparent distress General Appearance: cooperative, well kempt and well developed Orientation / Consciousness: awake, oriented to person, oriented to place and oriented to time HEENT normocephalic, head/scalp atraumatic and moist oral mucous membranes Head and Scalp: normocephalic Eyes PERRL, EOMs intact bilaterally and conjunctivae normal Neck nuchal rigidity, supple, no JVD, thyroid normal and no carotid bruits General: trachea midline Resp normal respiratory effort, no retractions, no use of accessory muscles and clear to auscultation bilaterally Auscultation: Negative for rales, rhonchi or wheezes Cardio regular rate, regular rhythm, S1 normal heart sound, S2 normal heart sound, no murmurs, no rub and no gallops GI normal to inspection, nondistended, normoactive bowel sounds, soft to palpation, non-tender and non-distended Extremity no clubbing, cyanosis or edema Skin no rashes or lesions noted General Skin Exam: no breakdown Neuro CN's II-XII intact bilaterally, no focal motor deficits and no sensory deficits noted Sensorium / Orientation: awake and alert Speech: speech normal Psych thought process normal and affect normal Assessment & Plan Assessment/Plan (1) Fall: PLAN: 1. Generalized debility-PT and OT are seeing patient, she will most probably have to go to an extended care facility for short-term rehab services, I told the patient that she was not able to go back to her apartment before she would go to an extended care facility. She stated that she wanted to go back to her apartment and take care of some things. #2 chronic obstructive pulmonary disease-patient is not on any oxygen, she will be monitored #3 left seventh rib fracture-patient will be given analgesics as needed Charges/Coding Visit Charges OBSV E&M: 13397 Subsequent observation care L2
[2021-04-23 21:15] VITALS: BP 125/55; PULSE 86; RESP 16; TEMP 36.9; O2SAT 95
[2021-04-23] MEDS: Amitriptyline 10 MG Tablet PO (21:30)
[2021-04-23] MEDS: clonazePAM 1 MG Tablet 2 MG PO (21:30)
--- NOTE | 2021-04-24 00:49 | PCS.PANDOC ---
PANDEMIC DOCUMENTATION INITIATED: Date: 04/23/20 Time: 1899
[2021-04-24 03:34] VITALS: BP 116/58; PULSE 74; RESP 16; TEMP 36.6; O2SAT 94
[2021-04-24] MEDS: Diclofenac 75 MG Tablet PO ×2 (07:57→18:36)
--- NOTE | 2021-04-24 09:12 | CASEMGMT ---
Social Work SW received a message from pt's telephonic case manager at [facility], Malini Lunsford([phone]). SW called her back. She states that she has worked with this pt for years. She states she has not had any increase in needing help with ADLs in the last 6 months due to her mental illness, as they are listed on the PAS/RR. Pt has had assist at home for years, it is not new. RAULITO inquired about her falling, Malini states pt was to follow up w/a neurologist but has not done so, she does not know what may be causing the falls. RAULITO let Malini know pt will likely go to [facility] in the next couple of days, if the plan changes RAULITO will let Malini know. OPHELIA Soria
[2021-04-24 09:30] VITALS: BP 127/73; PULSE 78; RESP 18; TEMP 36.5; O2SAT 96
[2021-04-24] MEDS: lamoTRIgine 100 MG Tablet 200 MG PO (09:42)
[2021-04-24] MEDS: Pantoprazole Sodium 40 MG Tablet PO (09:42)
[2021-04-24] MEDS: FLUoxetine 20 MG Capsule 40 MG PO (09:42)
[2021-04-24] MEDS: Topiramate 50 MG Tablet PO (09:43)
--- NOTE | 2021-04-24 10:38 | CASEMGMT ---
Addendum entered by Ana Gay 04/24/21 12:14: Social Work SW spoke w/Inga, precert is waived for her insurance, so pt can go to [facility] today. SW texted physician to let him know. SW will continue to follow, will set up pt to go to [facility] when ready. OPHELIA Soria Original Note: Social Work SW spoke w/Inga at [facility], they can take pt and will start precert. She asked if pt is vaccinated. SW spoke w/pt, let her know [facility] can take her and we are waiting for precert. SW asked if she is vaccinated for COVID, pt states no. [facility] SW will continue to follow. OPHELIA Soria
--- NOTE | 2021-04-24 14:05 | PCM.TXEXTCAR ---
Diet 04/23/21 00:46 Diet: Regular - General Food consistency:: Regular Liquid Consistency:: Regular/Thin Routine Orders/Code Status Code Status: Full Code Wound(s) forehead/bridge of nose: Wound Type: Abrasion Therapies Weight Bearing: Full weight bearing Physical Therapy: Eval and Treat Occupational Therapy: Eval and Treat Problem/Diagnosis (1) Generalized anxiety disorder: Status: Chronic (2) Left rib fracture: Status: Acute (3) Frequent falls: Status: Acute (4) Chronic obstructive lung disease: Status: Chronic (5) Schizophrenia: Status: Chronic (6) Unsteady gait: Status: Acute Allergies/Procedures Done in Hospital Allergies aspirin Allergy (Verified 12/17/20 11:58) Nausea Procedures: None Type of Care/Length of Stay Estimated LOS: Convalescent Care Less Than 30 days Type of Care Needed: Skilled Rehab Potential: Good Prognosis: Good Additional Orders/Day of Discharge H&P will serve as current which was dated: 04/22/21 Day of Discharge: 04/24/21 Discharge Plan Admission Admit Date/Time: 04/22/21 23:40 Primary Reason for Your Visit: debilty, frequent falls Attending Provider: Alfred Hall Primary Care Provider: Alfred Okeefe Discharge Orders/Prescriptions Prescriptions: New clonazepam 1 mg Tablet 2 mg PO QHS Qty: 5 RF: 0 acetaminophen-codeine 300-30 mg Tablet 2 tab PO Q4H PRN PRN (Reason: Pain 1-10) Qty: 30 RF: 0 Continued lamotrigine [Lamictal] 200 MG tablet 200 mg PO BID RF: 0 omeprazole 40 MG capsule,delayed release(DR/EC) 40 mg PO DAILY RF: 0 amitriptyline 10 MG tablet 10 mg PO QHS RF: 0 albuterol sulfate [ProAir HFA] 1 PUFF inhaler 2 puff inhalation Q6H PRN PRN (Reason: Sob &/Or Wheezing) RF: 0 fluoxetine 20 MG capsule 40 mg PO DAILY RF: 0 diclofenac sodium 75 MG tablet 75 mg PO BIDCM RF: 0 Changed topiramate 25 MG tablet 50 mg PO DAILY Qty: 0 RF: 0 Discontinued albuterol sulfate 2.5 MG/3 ML solution for nebulization 2.5 mg inhalation TID PRN PRN (Reason: Sob &/Or Wheezing) RF: 0 acetaminophen-codeine 1 TABLET tablet 1 tab PO Q4H PRN PRN (Reason: Pain) RF: 0 clonazepam [Klonopin] 2 MG tablet 2 mg PO QHS RF: 0 tramadol [Ultram] 50 mg tablet 50 mg PO Q6H PRN (Reason: pain) Qty: 12 RF: 0 Referrals / Follow Up: Alfred Okeefe MD [Primary Care Provider] - Disposition Disposition (needs filled in before D/C Order can be placed): [facility]
--- NOTE | 2021-04-24 14:46 | CASEMGMT ---
AYO ESTEVES called to [facility], pt was scheduled at this office in December. Rescheduled appt for May 16, 2021 at 1230, written on dc instructions. Clinicals faxed at this time to the office.
--- NOTE | 2021-04-24 15:10 | CASEMGMT ---
Addendum entered by Ana Gay 04/24/21 17:45: SW called [facility] again. SW informed that since SW said for a 5pm pickup, this indicates to [facility] to not start calling until 5pm. No calls have been made yet to set up transport. SW let Inga at [facility] know, and that the nurse will call the facility with the transport time. SW left the information w/the charge nurse to follow up w/calling to check on transport time. SW let pt know that we are still waiting for a transport time and the nurse will let her know what time she is going to [facility]. Pt agreeable to [facility] today. No further needs. OPHELIA Soria Addendum entered by Ana Gay 04/24/21 16:16: Social Work SW [facility] SW has called [facility] twice and [facility] once, transport is still not set up. SW will call again shortly. SW will let pt, RN, and CC know as soon as transport is scheduled, time of pickup. SW let Alexxavisza at [facility] know that we are waiting for a transport time. Pt going to [facility] today, skilled, convalescent stay. OPHELIA Soria Original Note: Pt is ready for discharge to [facility] today. RAULITO completed the PAS/RR, faxed this with results and all discharge information to [facility]. CM set up a neurology appointment for May w/Dr. Kim at [facility]. This was written on pt's discharge instructions, and RAULITO also left a message for her [facility] nurse case manager Malini Lunsford to let her know pt is going to [facility], and that she has this upcoming neurology appt. RAULITO set up transport with [facility], waiting for a call back with a time. OPHELIA Soria
--- NOTE | 2021-04-24 16:34 | PCM.DC.SUM ---
Providers Date of Admission: 04/22/21 Date of Discharge: 04/24/21 Primary Care Physician: Dr. Alfred Okeefe MD Reason For Visit: FREQUENT FALLS Diagnosis Discharge Diagnosis (1) Generalized anxiety disorder: Status: Chronic Code(s): F41.1 - Generalized anxiety disorder (2) Left rib fracture: Status: Acute Code(s): S22.32XA - Fracture of one rib, left side, initial encounter for closed fracture (3) Frequent falls: Status: Acute Code(s): R29.6 - Repeated falls (4) Chronic obstructive lung disease: Status: Chronic Code(s): J44.9 - Chronic obstructive pulmonary disease, unspecified (5) Schizophrenia: Status: Chronic Code(s): F20.9 - Schizophrenia, unspecified (6) Unsteady gait: Status: Acute Code(s): R26.81 - Unsteadiness on feet Plan: 1. Generalized debility secondary to chronic obstructive pulmonary disease and schizophrenia #2 chronic obstructive pulmonary disease #3 left seventh rib fracture secondary to fall #4 schizophrenia Medications at Discharge Home Medications albuterol sulfate [ProAir HFA] 2 puff INHALATION Q6H PRN PRN 05/04/17 amitriptyline 10 mg PO QHS 05/04/17 fluoxetine 40 mg PO DAILY 05/04/17 lamotrigine [Lamictal] 200 mg PO BID 05/04/17 omeprazole 40 mg PO DAILY 05/04/17 diclofenac sodium 75 mg PO BIDCM 07/18/18 acetaminophen-codeine 2 tab PO Q4H PRN PRN #30 tab 04/24/21 clonazepam 2 mg PO QHS #5 tab 04/24/21 topiramate 50 mg PO DAILY #0 tab 04/24/21 Hospital Course Operations None Procedures None Summary of Care Provided Minutes Spent on Discharge: 30 Hospital Course: This 65-year-old white female was seen in the emergency room at [facility] for evaluation of a closed head injury, patient fell hitting her head at home. Patient had a history of a prior fall 2 weeks ago and sustained a left rib fracture. Work-up in the emergency room including imaging studies were unremarkable. It was felt that the patient would not be safe to return home after she tried to get into a taxi on discharge from the ER and she fell 3 times. Patient was placed in observation status on MedSur 3, she was seen in consultation by PT and OT. On 04/24/2021, patient was seen and examined: On examination she appeared in good health and spirits, she does not appear to be in any distress. Vital signs as documented. Skin warm and dry and without overt rashes. Neck without JVD, thyroid appears normal, trachea is midline, neck is supple. Lungs clear, normal air movement was noted. Heart exam notable for regular rhythm, normal sounds and absence of murmurs, rubs or gallops. Abdomen unremarkable and without evidence of organomegaly, masses, or abdominal aortic enlargement, bowel sounds are present in all 4 quadrants, no abdominal tenderness was noted. Extremities nonedematous, no cyanosis was noted, no clubbing was noted. Neuro: Cranial nerves II through XII are grossly intact, no focal motor deficits were noted, sensation to light touch and pinprick is intact, motor exam 5/5 throughout. Psych: Patient is alert and oriented x3, she does not appear anxious or depressed, she does not appear agitated. On 04/24/2021, patient was seen and examined and felt to be stable for discharge to a local [facility] care facility for inpatient rehab services. Weight / BMI Weight Weight: 68.3 kg Body Mass Index (BMI) 28.4 ABG / Lab / Microbiology Data Result Diagrams: 04/22/21 22:20 04/22/21 22:20 Microbiology: Microbiology 04/22/21 23:24 Nasal Secretion SARS-CoV-2 Antigen (Rapid) - Final Meaningful Use Info Meaningful Use Diagnoses (Choose all that apply): None applicable Discharge Plan Admission Admit Date/Time: 04/22/21 23:40 Primary Reason for Your Visit: debilty, frequent falls Attending Provider: Alfred Hall Primary Care Provider: Alfred Okeefe Discharge Orders/Prescriptions Prescriptions: New clonazepam 1 mg Tablet 2 mg PO QHS Qty: 5 RF: 0 acetaminophen-codeine 300-30 mg Tablet 2 tab PO Q4H PRN PRN (Reason: Pain 1-10) Qty: 30 RF: 0 Continued lamotrigine [Lamictal] 200 MG tablet 200 mg PO BID RF: 0 omeprazole 40 MG capsule,delayed release(DR/EC) 40 mg PO DAILY RF: 0 amitriptyline 10 MG tablet 10 mg PO QHS RF: 0 albuterol sulfate [ProAir HFA] 1 PUFF inhaler 2 puff inhalation Q6H PRN PRN (Reason: Sob &/Or Wheezing) RF: 0 fluoxetine 20 MG capsule 40 mg PO DAILY RF: 0 diclofenac sodium 75 MG tablet 75 mg PO BIDCM RF: 0 Changed topiramate 25 MG tablet 50 mg PO DAILY Qty: 0 RF: 0 Discontinued albuterol sulfate 2.5 MG/3 ML solution for nebulization 2.5 mg inhalation TID PRN PRN (Reason: Sob &/Or Wheezing) RF: 0 acetaminophen-codeine 1 TABLET tablet 1 tab PO Q4H PRN PRN (Reason: Pain) RF: 0 clonazepam [Klonopin] 2 MG tablet 2 mg PO QHS RF: 0 tramadol [Ultram] 50 mg tablet 50 mg PO Q6H PRN (Reason: pain) Qty: 12 RF: 0 Referrals / Follow Up: Alfred Okeefe MD [Primary Care Provider] - Disposition Disposition (needs filled in before D/C Order can be placed): Senior Living Facility Charges/Coding Visit Charges OBSV E&M: 46408 Observation care discharge
[2021-04-24 16:50] VITALS: BP 130/72; PULSE 72; RESP 16; TEMP 36.9; O2SAT 98
[2021-04-24 19:35] VITALS: BP 137/70; PULSE 79; RESP 17; TEMP 36.8; O2SAT 94
== END 2021-04-24 19:43 ==
LOC: ED 23:26 → MS3 04-23 00:09
PROVIDERS: Admitting Provider Family Medicine; Emergency Provider Emergency Medicine; PCP Family Medicine; Visit Provider Internal Medicine
DX: S09.90XA Unspecified injury of head, initial encounter (principal); F20.9 Schizophrenia, unspecified; J44.9 Chronic obstructive pulmonary disease, unspecified; F32.A Depression, unspecified; F41.1 Generalized anxiety disorder; R26.81 Unsteadiness on feet; W19.XXXA Unspecified fall, initial encounter; S00.81XA Abrasion of other part of head, initial encounter; S22.32XA Fracture of one rib, left side, initial encounter for closed fracture; F17.290 Nicotine dependence, other tobacco product, uncomplicated; K21.9 Gastro-esophageal reflux disease without esophagitis; Z79.899 Other long term (current) drug therapy; V98.8XXA Other specified transport accidents, initial encounter; Y93.89 Activity, other specified; Y92.009 Unspecified place in unspecified non-institutional (private) residence as the place of occurrence of the external cause; R29.6 Repeated falls
CPT/HCPCS: 70450; 71101; 80053; 81001; 85025; 87426; 93005; 97116; 97162; 97166; 97535; 99218; 99284; 99285; 99406; P9612; A4216; G0378

== ENCOUNTER 2023-07-26 05:08 | Emergency (ER) | payer MEDICARE, MEDICAID, SELFPAY ==
[2023-07-26 05:09] VITALS: BP 147/75; PULSE 70; RESP 18; TEMP 36.1; O2SAT 97; BMI 29.9
[2023-07-26] MEDS: Ondansetron ODT 4 MG Tablet PO (05:39)
[2023-07-26] MEDS: Morphine 4 MG/ML Syringe 6 MG IM (05:39)
[2023-07-26] MEDS: Orphenadrine 60 MG/2 ML Ampul IM (05:41)
[2023-07-26] MEDS: Gabapentin 300 MG Capsule PO (05:41)
--- NOTE | 2023-07-26 05:44 | EX.ED.DYSGE1 ---
HPI History of Present Illness Chief Complaint: Back Informant: patient and EMS Narrative Narrative: Patient is a 68-year-old female with past medical history of COPD anxiety/depression migraine headache and GERD. She states she also has dealt with back pain for multiple years. She states that her pain is to the point where she needs to have a leading firefighter who can do daily activities such as cleaning. She reports that she takes clonazepam for anxiety/depression and just typically controls her back pain with [id number] Tylenol and Motrin. She denies any recent trauma or excessive activity she denies any loss of bowel or bladder control or IV drug use or history of recent back surgery. She states that the pain has been slowly worsening over the last few days to the point where she is now sleeping even less than she normally does and secondary to this comes in for evaluation [facility] Medical History Anxiety Asthma Closed head injury COPD (chronic obstructive pulmonary disease) Depression Facial abrasion Fall GERD (gastroesophageal reflux disease) Migraines Schizophrenia Home Medications albuterol sulfate 90 mcg/actuation aerosol inhaler (ProAir HFA) 2 puff inhalation Q6H PRN PRN Sob &/Or Wheezing 05/04/17 [History Last Taken Unknown] amitriptyline 10 mg tablet 10 mg PO QHS 05/04/17 [History Last Taken Unknown] fluoxetine 20 mg capsule 40 mg PO DAILY 05/04/17 [History Last Taken Unknown] lamotrigine 200 mg tablet (Lamictal) 200 mg PO BID 05/04/17 [History Last Taken Unknown] omeprazole 40 mg capsule,delayed release 40 mg PO DAILY 05/04/17 [History Last Taken Unknown] diclofenac sodium 75 mg tablet,delayed release 75 mg PO BIDCM 07/18/18 [History Last Taken Unknown] acetaminophen 300 mg-codeine 30 mg tablet 2 tab PO Q4H PRN PRN Pain 1-10 #30 tabs 04/24/21 [Rx Last Taken Unknown] clonazepam 1 mg tablet 2 mg (2 x 1 mg) PO QHS #5 tabs 04/24/21 [Rx Last Taken Unknown] topiramate 25 mg tablet 50 mg (2 x 25 mg) PO DAILY #0 tabs 04/24/21 [Rx Last Taken Unknown] gabapentin 300 mg capsule 300 mg PO TID 30 days #90 caps 07/26/23 [Rx Last Taken Unknown] oxycodone-acetaminophen 5 mg-325 mg tablet (Percocet) 1 tab PO Q6H PRN pain 5 days #20 tabs 07/26/23 [Rx Last Taken Unknown] Allergy/AdvReac Type Severity Reaction Status Date / Time aspirin Allergy Nausea Verified 12/17/20 11:58 Surgical History History of appendectomy Social History Smoking Status: Current every day smoker tobacco type: e-cigarettes substance use type: does not use ROS ROS ED Constitutional Constitutional ED: Denies chills or fever(s) Eyes Eyes: Denies change in vision ENT ENT ED: Denies sore throat Cardiovascular Cardiovascular: Denies chest pain Respiratory/Chest Respiratory/Chest: Denies cough or dyspnea Gastrointestinal Gastrointestinal: Denies abdominal pain, diarrhea, nausea or vomiting Genitourinary Genitourinary ED: Denies dysuria, hematuria or urinary frequency Musculoskeletal Musculoskeletal: Reports back pain Integumentary Denies rash Neurologic Neurologic: Denies headache(s) or paresthesias Hematologic/Lymphatic Hematologic/Lymphatic: Denies easy bleeding or easy bruising EXAM Physical Exam Const Vital Signs: 07/26/23 05:09 Temperature 96.9 F L Temperature Source Temporal Pulse Rate 70 Respiratory Rate 18 Blood Pressure 147/75 H Blood Pressure Mean 99 Pulse Ox 97 Oxygen Delivery Method Room Air Positive well nourished and well developed General Appearance ED: well developed; Negative for pallor HEENT HEENT Narrative: Normocephalic atraumatic Eyes PERRL and EOMs intact bilaterally General Eye ED: Negative for scleral icterus Neck supple Resp normal respiratory effort and clear to auscultation bilaterally Cardio regular rate and regular rhythm Rate: other Other Details: Radial and carotid pulses are equal and symmetric GI normal to inspection, nondistended, normoactive bowel sounds, non-tender, non-distended and no masses GI Narrative: No voluntary guarding or rigidity No pulsatile mass or fluid wave Auscultation: normoactive bowel sounds Palpation: soft Back/Spine Back/Spine Narrative: Patient has mild dextroscoliosis of the thoracic spine. There is no obvious bony deformity or step-off but there is midline pain on palpation of the lower lumbar spine as well as bilateral paralumbar tension and spasm noted that worsens with motion No saddle anesthesia. Negative straight leg raise. No clonus or Babinski. Patellar reflexes are plus 2 out of 4 bilaterally Extremity normal to inspection Neuro oriented x3, CN's II-XII intact bilaterally and no sensory deficits noted Sensorium / Orientation: alert Psych mental status grossly normal Skin no rashes or lesions noted and no wounds General Skin Exam: Negative for jaundice or pallor MDM MDM MDM Narrative Medical decision making narrative: Patient arrived to the ER with stable vitals and reported worsening chronic back pain without trauma or excessive activity. Differential diagnosis is for compression fracture versus spondylolisthesis versus lumbosacral strain versus osteoarthritis. Patient denied any loss of bowel or bladder control or IV drug use going against cauda equina or epidural abscess. She also denied any recent surgical procedure going against the discitis. Moreover she denied any dysuria or hematuria going against UTI/pyelonephritis or kidney stone. Therefore only felt need for an x-ray of the lumbar spine. This revealed degenerative changes consistent with arthritis and degenerative disc disease. By exam she does not have signs of neuro claudication or nerve impingement. She was medicated with IM morphine and Norflex and given oral gabapentin and on reevaluation has had moderate improvement of her symptoms. Therefore at this time as patient appears to have acute on chronic low back pain secondary to degenerative disc disease and arthritis she need to follow-up with her family doctor to discuss a surgical referral but in the meantime can be placed on Percocet and gabapentin on top of her clonazepam for symptom control. As her history and exam does not indicate discitis epidural abscess or cauda equina syndrome she is otherwise safe for discharge History & Record Review Discussion w/independent historian: Patient Radiography Diagnostic Testing: X-ray of the lumbosacral spine as interpreted by the emergency medicine physician reveals degenerative disc disease with arthritic changes but no acute compression fracture or spondylolisthesis Discharge Plan Triage Chief Complaint: Back ED Provider: Ludin Valdez Dx/Rx/DC Orders Clinical Impression: Osteoarthritis of lumbar spine, Degenerative disc disease, lumbar, Generalized anxiety disorder, Chronic obstructive lung disease Instructions: ED Back Spasm, No Trauma, ED Degenerative Disk Disease, ED Osteoarthritis Prescriptions: New gabapentin 300 mg capsule 300 mg PO TID 30 Days Qty: 90 0RF oxycodone-acetaminophen [Percocet] 5-325 mg tablet 1 tab PO Q6H PRN (Reason: pain) 5 Days Qty: 20 0RF No Action lamotrigine [Lamictal] 200 MG tablet 200 mg PO BID omeprazole 40 MG capsule,delayed release(DR/EC) 40 mg PO DAILY amitriptyline 10 MG tablet 10 mg PO QHS albuterol sulfate [ProAir HFA] 1 PUFF inhaler 2 puff inhalation Q6H PRN PRN (Reason: Sob &/Or Wheezing) fluoxetine 20 MG capsule 40 mg PO DAILY diclofenac sodium 75 MG tablet 75 mg PO BIDCM clonazepam 1 mg Tablet 2 mg PO QHS Qty: 5 0RF acetaminophen-codeine 300-30 mg Tablet 2 tab PO Q4H PRN PRN (Reason: Pain 1-10) Qty: 30 0RF topiramate 25 MG tablet 50 mg PO DAILY Qty: 0 0RF Primary Care Provider: Alfred Okeefe Referrals: Alfred Okeefe MD [Primary Care Provider] - Activity Restrictions/Additional Instructions: Continue your home medications as directed by your family doctor but add the gabapentin and Percocet for improved pain control. Talk to your family doctor about a referral to a orthopedic spine surgeon or neurosurgeon to further assess the cause of your worsening low back pain and return to the ER should you have any further concerns Disposition Disposition: Home, Self Care
--- NOTE | 2023-07-26 06:00 | RAD_ITS ---
EXAM: XR LUMBOSACRAL SPINE, 2 OR 3 VIEWS CLINICAL INDICATION: pain TECHNIQUE: Frontal and lateral views of the lumbar spine and sacrum. COMPARISON: No relevant prior studies available. FINDINGS: VERTEBRAE: There is mild dextroscoliosis of the lumbar spine centered at L3. DISC SPACES: Marked disc space narrowing and mild anterior and bilateral lateral spondylosis at L2-3. Marked disc space narrowing and mild spondylosis at L4-5 and L5-S1. No visible fracture. Straightening of the usual lordotic curvature. GASTROINTESTINAL TRACT: Moderate gas and stool in the proximal half of the colon, minimal rectal gas. Included bowel gas pattern is non-obstructive. OTHER FINDINGS: Unremarkable medial lung bases. RAD/Lumbar Spine 2 or 3 Views IMPRESSION: Multilevel moderate degenerative spine changes. Mild scoliosis. Electronically Signed: Agnes Huertas MD at 6:51 EDT ,
[2023-07-26 06:51] VITALS: BP 128/61; PULSE 71; RESP 18; TEMP 36.3; O2SAT 98
== END 2023-07-26 07:33 | disposition home or self-care (01) ==
PROVIDERS: Emergency Provider Emergency Medicine; PCP Family Medicine; Visit Provider Emergency Medicine
DX: M47.816 Spondylosis without myelopathy or radiculopathy, lumbar region (principal); J44.9 Chronic obstructive pulmonary disease, unspecified; F41.1 Generalized anxiety disorder; F17.290 Nicotine dependence, other tobacco product, uncomplicated; M51.36 Other intervertebral disc degeneration, lumbar region; F32.A Depression, unspecified; K21.9 Gastro-esophageal reflux disease without esophagitis; Z79.899 Other long term (current) drug therapy
CPT/HCPCS: 72100; 96372; 99283

== ENCOUNTER 2024-04-12 14:24 | Emergency (ER) | payer MEDICARE, MEDICAID, SELFPAY ==
[2024-04-12 14:25] VITALS: BP 156/72; PULSE 95; RESP 18; TEMP 36.2; O2SAT 94
--- NOTE | 2024-04-12 14:30 | RAD_ITS ---
STUDY: X-RAY CHEST REASON FOR EXAM: Female, 68 years old. chest pain TECHNIQUE: Single AP portable view of the chest. COMPARISON: September 20, 2021 FINDINGS: No visualized consolidation or infiltrates. COPD/emphysema/interstitial lung disease. There is no demonstrated pleural abnormality. Normal size heart. Normal mediastinum and devorah. Normal visualized pulmonary arteries. There is atherosclerotic calcification of the aortic arch with tortuosity. There are diffuse degenerative changes of the visualized thoracic spine. Normal visualized ribs, clavicles, and shoulders. There is no demonstrated abnormality of the visualized soft tissue structures of the upper abdomen. RAD/Chest 1 View (Portable) IMPRESSION: COPD/emphysema Electronically Signed: Sebastian Feliz MD at 15:21 EST ,
--- NOTE | 2024-04-12 17:49 | CT_ITS ---
EXAM: CT CHEST WITHOUT INTRAVENOUS CONTRAST CLINICAL INDICATION: left lower rib pain, concern for fracture TECHNIQUE: Helically acquired images were obtained of the chest without intravenous contrast. This CT exam was performed using one or more of the following dose reduction techniques: automated exposure control, adjustment of the mA and/or kV according to patient size, and/or use of iterative reconstruction technique. RADIATION DOSE: CTDIvol = 13.07 mGy, DLP = 519.41 mGy-cmContrast: COMPARISON: Abdomen pelvis CT July 18, 2018. FINDINGS: LUNGS AND PLEURAL SPACES: There is a 6.6 mm x 5 mm AP nodules left lung apex. No pleural effusion or thickening. No pneumothorax. HEART: Unremarkable. Heart size is normal. No pericardial effusion. No significant coronary artery calcifications. MEDIASTINUM: A few small mediastinal lymph nodes do not appear suspicious by size criteria. Mild hiatal hernia. Esophagus is unremarkable. THYROID: Unremarkable. No thyroid lesions. BONES/JOINTS: There are multiple subtle old healed left lateral rib fractures with minimal contour deformity and callus. There are acute fractures of the left posterior lateral eighth and ninth ribs ribs, best seen on sagittal images 238 through 248. Mild degenerative spine changes. Mild S-shaped thoracic scoliosis. No suspicious lytic or blastic abnormality. VASCULATURE: Mild calcification of descending thoracic aorta. Thoracic aorta is non-dilated. GALLBLADDER AND BILE DUCTS: Low-attenuation fatty liver is not fully included. Some of the most proximal pancreas is not included. Cholelithiasis is noted, there is a 6 mm stone at the gallbladder neck-proximal body. The gallbladder is not fully included. CT/Chest without Contrast IMPRESSION: 1. Acute nondisplaced fractures of left posterior lateral eighth and ninth ribs. No pneumothorax or pulmonary contusion. 2. 6 mm mean left apical pulmonary nodule. RECOMMENDATION ( unless prior chest CTs can be obtained for comparison): Fleischner Society Guidelines (MacMahon, et al. Radiology 2017; 284(1):228-43) suggest the following. For low-risk patients recommend follow-up chest CT at 6-12 months. If unchanged consider an additional follow-up CT at 18-24 months. For high-risk patients initial follow-up chest CT at 6-12 months and if unchanged, 18-24 months. 3. Fatty liver. Small hiatal hernia. Cholelithiasis. Electronically Signed: Agnes Huertas MD at 19:35 EST ,
[2024-04-12 17:51] VITALS: BMI 34.2
[2024-04-12] MEDS: Lidocaine 5% Patch 1 PATCH TOPICAL (18:17)
[2024-04-12] MEDS: oxyCODONE 5 MG Tablet PO (18:17)
[2024-04-12 18:25] VITALS: BP 142/66; PULSE 60; RESP 18; O2SAT 98
--- NOTE | 2024-04-12 20:22 | ED.VIS.CHEST ---
HPI History of Present Illness Chief Complaint: Chest Other Informant: patient Narrative Narrative: Patient is a 60-year-old female with history of COPD presenting for chest pain. Patient states a week and a half ago she was coughing very hard and she physically felt a pop and had severe pain in her left lower ribs at the mid clavicular line and in the mid axillary line. She states she had pretty bad pain for about 3 days and stayed in bed and tried to take it very easy. She had some leftover oxycodone which provides relief. She notes that she was doing better but then today started to have significant pain again. She denies new trauma or injury. Denies any coughing. She did take an oxycodone earlier today which did provide some relief. She notes that she has been breathing shallowly and her pain is worse with movement or deep breathing. She denies any cardiac history. She notes that she is prone to pneumonia. Denies any fever or chills. Denies any acute cough. No other complaints or concerns at this time. Denies any trauma. [facility] Medical History Migraines Facial abrasion Closed head injury Fall Schizophrenia Depression Anxiety GERD (gastroesophageal reflux disease) Asthma COPD (chronic obstructive pulmonary disease) Home Medications ?Medication ?Instructions ?Recorded ?Last Taken ?Type albuterol sulfate 90 mcg/actuation 2 puff inhalation Q6H PRN PRN Sob 05/04/17 Unknown History aerosol inhaler (ProAir HFA) &/Or Wheezing amitriptyline 10 mg tablet 10 mg PO QHS 05/04/17 Unknown History fluoxetine 20 mg capsule 40 mg PO DAILY 05/04/17 Unknown History lamotrigine 200 mg tablet 200 mg PO BID 05/04/17 Unknown History (Lamictal) omeprazole 40 mg capsule,delayed 40 mg PO DAILY 05/04/17 Unknown History release diclofenac sodium 75 mg 75 mg PO BIDCM 07/18/18 Unknown History tablet,delayed release acetaminophen 300 mg-codeine 30 mg 2 tab PO Q4H PRN PRN Pain 1-10 #30 04/24/21 Unknown Rx tablet tabs clonazepam 1 mg tablet 2 mg (2 x 1 mg) PO QHS #5 tabs 04/24/21 Unknown Rx topiramate 25 mg tablet 50 mg (2 x 25 mg) PO DAILY #0 tabs 04/24/21 Unknown Rx gabapentin 300 mg capsule 300 mg PO TID 30 days #90 caps 07/26/23 Unknown Rx oxycodone-acetaminophen 5 mg-325 1 tab PO Q6H PRN pain 5 days #20 07/26/23 Unknown Rx mg tablet (Percocet) tabs oxycodone 5 mg tablet 5 mg PO Q6H PRN pain 3 days #12 04/12/24 Unknown Rx tabs Allergy/AdvReac Type Severity Reaction Status Date / Time aspirin Allergy Nausea Verified 12/17/20 11:58 Surgical History History of appendectomy Social History Smoking Status: Current every day smoker tobacco type: e-cigarettes substance use type: does not use ROS ROS ED Constitutional Constitutional ED: Denies chills or fever(s) Cardiovascular Cardiovascular: Reports as per HPI and chest pain Respiratory/Chest Respiratory/Chest: Denies cough or sputum Gastrointestinal Gastrointestinal: Denies nausea or vomiting Musculoskeletal Musculoskeletal: Reports other Details: Left-sided rib pain Integumentary Denies rash Psychiatric Psychiatric: Reports anxiety Hematologic/Lymphatic Hematologic/Lymphatic: Denies easy bleeding or easy bruising EXAM Physical Exam Const Vital Signs: 04/12/24 14:25 04/12/24 17:49 04/12/24 18:25 Temperature 97.2 F L Temperature Source Temporal Pulse Rate 95 60 Respiratory Rate 18 18 Respiratory Effort Normal Blood Pressure 156/72 H 142/66 H Blood Pressure Mean 100 91 Pulse Ox 94 98 Oxygen Delivery Method Room Air Room Air 04/12/24 20:25 Temperature 98.4 F Temperature Source Pulse Rate 63 Respiratory Rate 18 Respiratory Effort Blood Pressure 138/77 H Blood Pressure Mean 97 Pulse Ox 98 Oxygen Delivery Method Positive well nourished and well developed General Appearance ED: well developed and NAD HEENT Reports moist mucous membranes Neck supple and no JVD Chest Wall Chest Narrative: No chest wall crepitus appreciated. Patient has reproducible tenderness palpation of the left ribs approximately 7 and 8 at the midclavicular line extending slightly laterally. No posterior tenderness palpation at that level as well but not as severe Resp normal respiratory effort and clear to auscultation bilaterally Cardio regular rate and regular rhythm GI normal to inspection, nondistended, normoactive bowel sounds and soft to palpation Back/Spine no thoracic nor lumbar tenderness Cervical Spine: Negative for cervical spine tenderness Extremity normal to inspection General Extremety ED: Negative for edema General Extremity: Negative for edema Neuro oriented x3 Sensorium / Orientation: awake Motor Exam: Negative for general weakness Skin no rashes or lesions noted and no wounds MDM MDM MDM Narrative Medical decision making narrative: Patient is evaluated for sudden onset of pretty severe left-sided rib pain today. She had a particularly bad coughing episode a week and a half ago with the same pain. No new injuries reported today. Patient's vital signs significant for mild hypertension but otherwise normal. She is 94 to 98% on room air. She is not appear to be in any respiratory distress. Portable chest x-ray viewed by myself as well as radiology show COPD/emphysema. Patient is not wheezing I do not think is having an acute COPD exacerbation at this time. CT is ordered to evaluate for more subtle pneumonia as well as rib fracture given the HPI and physical exam. Patient is given a dose of oxycodone and Lidoderm patch in the ER for further pain control. CT does show acute nondisplaced fracture of the left posterior lateral eighth and ninth ribs with no pneumothorax or pulmonary contusion. In addition patient has a pulmonary nodule. Patient is informed of her findings and given a copy of her CT report. Will be discharged home with a short course of oxycodone for further pain control. Is given return precautions. Given incentive spirometer and counseled on the risk of pneumonia associate with rib fractures. She verbalized agreement understand this plan. Discharged home in stable condition. Encouraged to follow-up with her primary care doctor Radiography Diagnostic Testing: Clinical Impression(s) from Imaging Studies Chest X-Ray 04/12/24 14:30 IMPRESSION: COPD/emphysema Electronically Signed: Sebastian Feliz MD at 15:21 EST , Chest CT 04/12/24 17:49 IMPRESSION: 1. Acute nondisplaced fractures of left posterior lateral eighth and ninth ribs. No pneumothorax or pulmonary contusion. 2. 6 mm mean left apical pulmonary nodule. RECOMMENDATION ( unless prior chest CTs can be obtained for comparison): Fleischner Society Guidelines (MacMahon, et al. Radiology 2017; 284(1):228-43) suggest the following. For low-risk patients recommend follow-up chest CT at 6-12 months. If unchanged consider an additional follow-up CT at 18-24 months. For high-risk patients initial follow-up chest CT at 6-12 months and if unchanged, 18-24 months. 3. Fatty liver. Small hiatal hernia. Cholelithiasis. Electronically Signed: Agnes Huertas MD at 19:35 EST Reading Location ID and State: [facility] / [place] Tel , Service support , Discharge Plan Triage Chief Complaint: Chest Other ED Provider: Ana Osman Dx/Rx/DC Orders Clinical Impression: Left rib fracture, Left-sided chest wall pain Instructions: ED Rib Fracture Prescriptions: New oxycodone 5 mg tablet 5 mg PO Q6H PRN (Reason: pain) 3 Days Qty: 12 0RF No Action lamotrigine [Lamictal] 200 MG tablet 200 mg PO BID omeprazole 40 MG capsule,delayed release(DR/EC) 40 mg PO DAILY amitriptyline 10 MG tablet 10 mg PO QHS albuterol sulfate [ProAir HFA] 1 PUFF inhaler 2 puff inhalation Q6H PRN PRN (Reason: Sob &/Or Wheezing) fluoxetine 20 MG capsule 40 mg PO DAILY diclofenac sodium 75 MG tablet 75 mg PO BIDCM clonazepam 1 mg Tablet 2 mg PO QHS Qty: 5 0RF acetaminophen-codeine 300-30 mg Tablet 2 tab PO Q4H PRN PRN (Reason: Pain 1-10) Qty: 30 0RF topiramate 25 MG tablet 50 mg PO DAILY Qty: 0 0RF oxycodone-acetaminophen [Percocet] 5-325 mg tablet 1 tab PO Q6H PRN (Reason: pain) 5 Days Qty: 20 0RF gabapentin 300 mg capsule 300 mg PO TID 30 Days Qty: 90 0RF Primary Care Provider: Alfred Okeefe Referrals: Alfred Okeefe MD [Primary Care Provider] - Activity Restrictions/Additional Instructions: Please also use [id number] Salonpas Lidoderm patches to help with pain. Use your incentive parameter every 15 minutes while at rest to help prevent associated pneumonia. You do have a pulmonary nodule seen on your imaging. Please follow-up with your primary care doctor for this. Print Language: Mexican Disposition Disposition: Home, Self Care
[2024-04-12 20:25] VITALS: BP 138/77; PULSE 63; RESP 18; TEMP 36.9; O2SAT 98
== END 2024-04-12 20:50 | disposition home or self-care (01) ==
PROVIDERS: Emergency Provider Emergency Medicine; PCP Family Medicine; Visit Provider Emergency Medicine
DX: S22.42XA Multiple fractures of ribs, left side, initial encounter for closed fracture (principal); J43.9 Emphysema, unspecified; X58.XXXA Exposure to other specified factors, initial encounter; I10 Essential (primary) hypertension; F17.290 Nicotine dependence, other tobacco product, uncomplicated; Z79.899 Other long term (current) drug therapy
CPT/HCPCS: 71045; 71250; 99284; A4216

== ENCOUNTER 2024-05-05 15:40 | Emergency (ER) | payer MEDICARE, MEDICAID, SELFPAY ==
[2024-05-05 15:41] VITALS: BP 117/100; PULSE 90; RESP 22; TEMP 36.8; O2SAT 95; BMI 34.2
--- NOTE | 2024-05-05 16:07 | EDS_ITS ---
HPI <BRIAN Burger - Last Filed: 05/05/24 16:49> History of Present Illness Chief Complaint: Chest Other Informant: patient Narrative Narrative: Patient 68-year-old female with history of COPD depression, schizophrenia presents to the [facility] for reevaluation to left rib pain. Patient was seen here on 04/12/2024. Patient states that she was coughing, feeling a pop to her left lower ribs. Patient did receive a CT scan of the chest looking for any rib fractures or pneumonia, pneumothorax. Patient did have 2 fractured ribs. Patient was given Lidoderm patch as well as Percocet. Patient states today while sitting in her chair she had a severe pain to her left chest, worsening with coughing movement. She is here for evaluation. [facility] <BRIAN Burger - Last Filed: 05/05/24 16:49> [facility] Medical History Migraines Facial abrasion Closed head injury Fall Schizophrenia Depression Anxiety GERD (gastroesophageal reflux disease) Asthma COPD (chronic obstructive pulmonary disease) Home Medications ?Medication ?Instructions ?Recorded ?Last Taken ?Type albuterol sulfate 90 mcg/actuation 2 puff inhalation Q6H PRN PRN Sob 05/04/17 Unknown History aerosol inhaler (ProAir HFA) &/Or Wheezing amitriptyline 10 mg tablet 10 mg PO QHS 05/04/17 Unknown History fluoxetine 20 mg capsule 40 mg PO DAILY 05/04/17 Unknown History lamotrigine 200 mg tablet 200 mg PO BID 05/04/17 Unknown History (Lamictal) omeprazole 40 mg capsule,delayed 40 mg PO DAILY 05/04/17 Unknown History release diclofenac sodium 75 mg 75 mg PO BIDCM 07/18/18 Unknown History tablet,delayed release acetaminophen 300 mg-codeine 30 mg 2 tab PO Q4H PRN PRN Pain 1-10 #30 04/24/21 Unknown Rx tablet tabs clonazepam 1 mg tablet 2 mg (2 x 1 mg) PO QHS #5 tabs 04/24/21 Unknown Rx topiramate 25 mg tablet 50 mg (2 x 25 mg) PO DAILY #0 tabs 04/24/21 Unknown Rx gabapentin 300 mg capsule 300 mg PO TID 30 days #90 caps 07/26/23 Unknown Rx oxycodone-acetaminophen 5 mg-325 1 tab PO Q6H PRN pain 5 days #20 07/26/23 Unknown Rx mg tablet (Percocet) tabs oxycodone 5 mg tablet 5 mg PO Q6H PRN pain 3 days #12 04/12/24 Unknown Rx tabs lidocaine 5 % topical patch 1 patch topical DAILY #15 ea 05/05/24 Unknown Rx (Lidoderm) oxycodone-acetaminophen 5 mg-325 1 tab PO Q8H PRN pain 3 days #10 05/05/24 Unknown Rx mg tablet (Percocet) tabs Allergy/AdvReac Type Severity Reaction Status Date / Time aspirin Allergy Nausea Verified 05/05/24 15:41 Surgical History History of appendectomy Social History Smoking Status: Current every day smoker tobacco type: e-cigarettes substance use type: does not use ROS <BRIAN Burger - Last Filed: 05/05/24 16:49> ROS ED ROS Narrative Constitutional: Negative for fever, chills, weight loss, weakness Eyes: Negative for vision loss, vision change, double vision ENT: Negative for any sore throat, ear pain, congestion Cardiovascular: Negative for any chest pain, tightness, palpitations Respiratory: Negative for any cough, sputum production, hemoptysis, dyspnea, dyspnea on exertion, orthopnea Gastrointestinal: Negative for any abdominal pain, nausea, vomiting, diarrhea, constipation, blood in stool, blood in vomit : Negative for any urinary frequency, dysuria, retention, blood in urine Muscle skeletal: Negative for any neck pain, back pain. Positive left chest wall pain Neurological: Negative for any headache, syncope, dizziness Skin: Negative for any rashes, itching, abrasions, lacerations Psychiatric: Negative for any depression, anxiety, stress, suicidal ideation, homicidal ideation Hematologic: Negative for any excessive bruising, easy bleeding EXAM <BRIAN Burger - Last Filed: 05/05/24 16:49> Physical Exam Narrative Exam Narrative: Vital signs reviewed. HEET: Head normocephalic atraumatic, TMs clear bilaterally. Posterior pharynx is clear, moist mucous membranes. Nares clear bilaterally. Neck: Supple with no lymphadenopathy or tenderness. No signs of meningismus. Cardiac: Regular rate and rhythm no murmurs gallops or rubs, equal peripheral pulses bilaterally. Respiratory: Lungs clear to auscultation bilaterally. Positive for left anterior and lateral chest wall tenderness. There is no crepitus. Equal breath sounds in all quadrants Abdomen: Soft, nontender, nondistended. No abdominal bruit or pulsatile masses. No hepatosplenomegaly Extremities: No peripheral edema, no signs of gross trauma or deformity. Active full range of motion of all extremities. Neuro: Cranial nerves II through XII intact, no focal neurological deficits. Skin: Clean dry and intact with no rash, purpura, petechiae, vesicles or pustules. Backs/flank: No CVA tenderness, no midline spinal tenderness, no deformity. Psych: Normal mood and affect. No SI, HI or acute psychosis. Const Vital Signs: 05/05/24 15:41 05/05/24 17:12 05/05/24 17:12 Temperature 98.2 F 97.9 F Temperature Source Oral Pulse Rate 90 90 Respiratory Rate 22 H 25 H Respiratory Effort Short of Breath Blood Pressure 117/100 H 132/85 H Blood Pressure Mean 105 100 Pulse Ox 95 95 Oxygen Delivery Method Room Air <Dr. Tulio Vazquez DO - Last Filed: 05/05/24 21:59> Physical Exam Const Vital Signs: 05/05/24 15:41 05/05/24 17:12 05/05/24 17:12 Temperature 98.2 F 97.9 F Temperature Source Oral Pulse Rate 90 90 Respiratory Rate 22 H 25 H Respiratory Effort Short of Breath Blood Pressure 117/100 H 132/85 H Blood Pressure Mean 105 100 Pulse Ox 95 95 Oxygen Delivery Method Room Air [facility] <BRIAN Burger - Last Filed: 05/05/24 16:49> MDM Radiography Diagnostic Testing: Clinical Impression(s) from Imaging Studies Ribs w/Chest X-Ray 05/05/24 16:20 IMPRESSION: RIBS: Findings consistent with old healed left rib fracture but no definitive evidence for acute fracture. If concern for acute fracture bone scan would be helpful for further assessment CHEST: No acute cardiopulmonary pathology Electronically Signed: Harrison Alvarado MD at 16:42 EST , Treatment and Re-Evaluation :: Differential diagnosis includes however is not limited to: Worsening rib fractures, costochondritis, community-acquired pneumonia, pulmonary embolus, ACS, SC Patient appears generally well, vital signs are stable, patient is nontoxic- appearing. Presenting to the emergency department for reevaluation for left- sided chest wall pain. Physical examination is consistent with more muscle skeletal pain. Patient has worsening pain on palpation as well as movement. X-rays of the left ribs will be obtained to ensure there is no worsening rib fractures as well as no pneumothorax, pneumonia. Patient given oxycodone as well as Lidoderm patch. All radiologic examinations were read, reviewed by the emergency department attending. From these reads, a plan of care will be put in place. X-ray left rib series and chest show findings consistent with old healed left rib fractures but no definitive evidence of acute fracture. Lungs are clear, no evidence of pneumothorax. At this time, patient be redosed with oxycodone, she is given Lidoderm patches. She will follow-up outpatient. All questions answered, she will continue to use her incentive spirometer as indicated. Stable for discharge <Dr. Tulio Vazquez, DO - Last Filed: 05/05/24 21:59> [facility] Narrative Medical decision making narrative: Attending note: I have personally performed a face to face assessment of the patient and have reviewed the ALTAF note. I personally made/approved the management plan and take responsibility for the patient management. I performed a substantive portion of the visit including all aspects of the following. My reddy findings include: Increasing nontraumatic pain left lower ribs over the past week. Was seen April 11 for fall. Found to have rib fractures on CT #8 #9 posteriorly. She was sent home on incentive spirometer. She is using intermittent oxycodone. She recently ran out. COPD history. Chronic cough. Exam symmetric breath sounds tender palpation lower posterior ribs. No crepitus. Will check chest x-ray, oral pain medications. 4 view left ribs PA chest inter by myself and read by radiology healing fractures no pneumothorax. Additional Toradol was ordered in the ED. Prescription for pain control she will continue her incentive spirometry. She will keep her follow-up with her PCP. Radiography Diagnostic Testing: Clinical Impression(s) from Imaging Studies Ribs w/Chest X-Ray 05/05/24 16:20 IMPRESSION: RIBS: Findings consistent with old healed left rib fracture but no definitive evidence for acute fracture. If concern for acute fracture bone scan would be helpful for further assessment CHEST: No acute cardiopulmonary pathology Electronically Signed: Harrison Alvarado MD at 16:42 EST Reading Location ID and State: [address] [place] [address] Tel , Service support , Discharge Plan Triage Chief Complaint: Chest Other ED Midlevel Provider: Aurelio Del Toro ED Provider: Tulio Vazquez Dx/Rx/DC Orders Clinical Impression: Chest wall pain, History of fracture of rib Instructions: ED Chest Pain, Noncardiac, ED Rib Fracture Prescriptions: New oxycodone-acetaminophen [Percocet] 5-325 mg tablet 1 tab PO Q8H PRN (Reason: pain) 3 Days Qty: 10 0RF lidocaine [Lidoderm] 5 % adhesive patch,medicated 1 patch topical DAILY Qty: 15 0RF Rx Instructions: leave on most painful area for up to 12 hrs No Action lamotrigine [Lamictal] 200 MG tablet 200 mg PO BID omeprazole 40 MG capsule,delayed release(DR/EC) 40 mg PO DAILY amitriptyline 10 MG tablet 10 mg PO QHS albuterol sulfate [ProAir HFA] 1 PUFF inhaler 2 puff inhalation Q6H PRN PRN (Reason: Sob &/Or Wheezing) fluoxetine 20 MG capsule 40 mg PO DAILY diclofenac sodium 75 MG tablet 75 mg PO BIDCM clonazepam 1 mg Tablet 2 mg PO QHS Qty: 5 0RF acetaminophen-codeine 300-30 mg Tablet 2 tab PO Q4H PRN PRN (Reason: Pain 1-10) Qty: 30 0RF topiramate 25 MG tablet 50 mg PO DAILY Qty: 0 0RF oxycodone-acetaminophen [Percocet] 5-325 mg tablet 1 tab PO Q6H PRN (Reason: pain) 5 Days Qty: 20 0RF gabapentin 300 mg capsule 300 mg PO TID 30 Days Qty: 90 0RF oxycodone 5 mg tablet 5 mg PO Q6H PRN (Reason: pain) 3 Days Qty: 12 0RF Primary Care Provider: Alfred Okeefe Referrals: Alfred Okeefe MD [Primary Care Provider] - Activity Restrictions/Additional Instructions: Please follow-up outpatient. Take the pain medicine as needed. Print Language: Malay Disposition Disposition: Home, Self Care Discharge Date/Time: 05/05/24 17:26
[2024-05-05] MEDS: oxyCODONE 5 MG Tablet PO (16:11)
[2024-05-05] MEDS: Lidocaine 5% Patch 1 PATCH TOPICAL (16:11)
--- NOTE | 2024-05-05 16:20 | RAD_ITS ---
STUDY: X-RAY - UNILATERAL RIBS ( LEFT ) WITH CHEST REASON FOR EXAM: Female, 68 years old. rib pain TECHNIQUE - RIBS: 2 view(s) of the ribs. TECHNIQUE - CHEST: PA COMPARISON: None. FINDINGS - RIBS: There is subtle deformity of the axillary aspect of the mid left rib cage which has the appearance of a healed fracture. No definitive evidence for acute fracture FINDINGS - CHEST: The lungs are clear and expanded. There is no demonstrated pleural abnormality. Normal size heart. Normal mediastinum and devorah. Normal visualized pulmonary arteries. Normal visualized aortic arch and descending thoracic aorta. Dorsal spine demonstrates scoliosis and degenerative changes. Normal visualized ribs, clavicles, and shoulders. There is no demonstrated abnormality of the visualized soft tissue structures of the upper abdomen. RAD/Ribs Uni Min 3V w/PA Chest IMPRESSION: RIBS: Findings consistent with old healed left rib fracture but no definitive evidence for acute fracture. If concern for acute fracture bone scan would be helpful for further assessment CHEST: No acute cardiopulmonary pathology Electronically Signed: Harrison Alvarado MD at 16:42 EST ,
[2024-05-05] MEDS: Ketorolac 30 MG/ML Syringe IM (17:09)
[2024-05-05 17:12] VITALS: BP 132/85; PULSE 90; RESP 25; TEMP 36.6; O2SAT 95
--- NOTE | 2024-05-05 17:26 | ED.RN ---
pt ask this RN if the proper amount of oxycodone was given because she was still in 10/10 pain. Are you sure you gave me that pain pill? RN explained pt was ordered a 5mg Oxycodone by Aurelio Del Toro and was given by this RN. RN asked pt if home prescription was 5mg or 10mg, since a 10mg is stronger and would provide more relief. pt did not know. 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 Given to pt, observed for 15 minutes. D/C home.
== END 2024-05-05 17:26 | disposition home or self-care (01) ==
PROVIDERS: Emergency Provider Emergency Medicine; PCP Family Medicine; Visit Provider Emergency Medicine
DX: R07.89 Other chest pain (principal); F20.9 Schizophrenia, unspecified; J44.9 Chronic obstructive pulmonary disease, unspecified; F32.A Depression, unspecified; F41.9 Anxiety disorder, unspecified; F17.290 Nicotine dependence, other tobacco product, uncomplicated; Z79.899 Other long term (current) drug therapy; Z87.81 Personal history of (healed) traumatic fracture
CPT/HCPCS: 71101; 96372; 99284